=== PATIENT | female | born 1975 | race Caucasian/White ===

== ENCOUNTER 2020-04-06 15:30 | Outpatient (REF) | payer BC, SELFPAY | END 2020-04-06 15:31 | disposition home or self-care (01) | LOC: HO.LAB 15:30 | PROVIDERS: Visit Provider Internal Medicine | DX: Z20.822 Contact with and (suspected) exposure to COVID-19 (principal) | CPT/HCPCS: 36415; C9803; U0003 ==

== ENCOUNTER 2020-04-14 17:05 | Outpatient (REF) | payer BC, SELFPAY | END 2020-04-14 17:06 | disposition home or self-care (01) | LOC: HO.LAB 17:05 | PROVIDERS: PCP Pediatrics; Visit Provider Internal Medicine | DX: Z20.822 Contact with and (suspected) exposure to COVID-19 (principal) | CPT/HCPCS: 36415; C9803; U0003 ==

== ENCOUNTER → 2020-08-19 12:10 | Outpatient (BNVA) | payer BC, SELFPAY | PROVIDERS: PCP Pediatrics; Visit Provider Urology ==

== ENCOUNTER 2020-08-30 13:52 | Outpatient (REF) | payer BC, SELFPAY ==
[2020-08-31 09:39] LABS: CT PCR NOT DETECTED (Not Detect.); NG PCR NOT DETECTED (Not Detect.)
[2020-08-31 10:05] LABS: BV Int Neg Control Negative (Negative); BV Int Pos Control Positive (Positive)
== END 2020-08-30 13:53 | disposition home or self-care (01) ==
LOC: HO.LAB 13:52
PROVIDERS: Visit Provider Advanced Practice Midwife
DX: Z01.411 Encounter for gynecological examination (general) (routine) with abnormal findings (principal); Z11.3 Encounter for screening for infections with a predominantly sexual mode of transmission; B37.2 Candidiasis of skin and nail; Z20.2 Contact with and (suspected) exposure to infections with a predominantly sexual mode of transmission
CPT/HCPCS: 87480; 87491; 87510; 87591; 87660

== ENCOUNTER → 2020-11-02 13:22 | Outpatient (BNVA) | payer BC, SELFPAY | PROVIDERS: Visit Provider Advanced Practice Midwife | DX: Z30.433 Encounter for removal and reinsertion of intrauterine contraceptive device (principal) | CPT/HCPCS: 58300; 58301; 81025; J7298 ==

== ENCOUNTER 2021-01-01 10:28 | Emergency (ER) | payer BC, SELFPAY ==
--- NOTE | ~2021-01-01 | CT_ITS ---
EXAMINATION: CT ABDOMEN AND PELVIS WITHOUT CONTRAST CLINICAL INFORMATION: Right flank pain COMPARISON: None TECHNIQUE: Multidetector volumetric imaging was performed from the superior aspect of the liver through the pubic symphysis. Sagittal and coronal reformatted images were obtained on the technologist's workstation. This CT examination was performed using dose optimization techniques as appropriate, variously including the following: *Automated exposure control *Adjustment of mA and/or kV according to patient size (this includes techniques or standardized protocols for targeted exams where dose is matched to indication/reason for exam; i.e. extremities or head) *Use of iterative reconstruction technique DLP: 537 mGy-cm FINDINGS: LUNG BASES: The visualized lung bases are unremarkable. LIVER, GALLBLADDER, AND BILIARY TREE: The liver is normal in size, shape, and diffusely low in attenuation. No focal hepatic lesion or biliary ductal dilatation is present. The gallbladder is unremarkable with no evidence of radiopaque gallstones, gallbladder wall thickening, or obvious pericholecystic inflammatory changes. PANCREAS: Unremarkable. SPLEEN: Unremarkable. ADRENAL GLANDS: Unremarkable. KIDNEYS AND URETERS: The kidneys are normal in size, shape, and attenuation. No hydronephrosis, hydroureter, or calculi seen. No perinephric stranding. BLADDER: Unremarkable. GASTROINTESTINAL TRACT: The small and large bowel are unremarkable. The appendix is unremarkable. ABDOMINAL WALL: No significant hernia is appreciated. LYMPH NODES: Multiple small right lower quadrant mesenteric lymph nodes. VASCULAR: Unremarkable. PELVIC VISCERA: The uterus and adnexa are unremarkable. IUD within the endometrial canal. OSSEOUS STRUCTURES: Unremarkable. CT/CT abdomen pelvis wo con IMPRESSION: 1. Stable small right lower quadrant mesenteric lymph nodes may be secondary to mesenteric adenitis. 2. No renal calculi or hydronephrosis. 3. Normal appendix.
[2021-01-01 10:39] VITALS: BP 152/87; PULSE 87; RESP 18; TEMP 36.6; O2SAT 97; BMI 32.2
--- NOTE | 2021-01-01 10:48 | ED_ITS ---
HPI - Abdominal Pain General Chief Complaint: Abdominal Pain Stated Complaint: kidney pain Time Seen by Provider: 01/01/21 10:47 Source: patient Mode of arrival: ambulatory Limitations: no limitations History of Present Illness MD elicited complaint: flank pain Pertinent past history: kidney stones Onset (ago): month(s) (chronic in nature but much worse this AM) Pain Consistency: colicky Location: R flank Severity: moderate Quality: stabbing Radiation: RLQ Migration to: no migration Exacerbating factors: nothing Relieving factors: nothing Context: history of similar episodes Associated symptoms: nausea and dysuria Related Data Home Medications Medication Instructions Recorded Confirmed amitriptyline 50 mg tablet 50 mg PO BEDTIME 08/30/20 11/02/20 loratadine 10 mg tablet (Claritin) 10 mg PO DAILY 08/30/20 11/02/20 methocarbamol 750 mg tablet 750 mg PO TID 08/30/20 11/02/20 nabumetone 500 mg tablet 500 mg PO BID 08/30/20 11/02/20 oxcarbazepine 300 mg tablet 300 mg PO BID 08/30/20 11/02/20 pentosan polysulfate sodium 100 mg 100 mg PO TID 08/30/20 11/02/20 capsule zolpidem 10 mg tablet 10 mg PO BEDTIME PRN 08/30/20 11/02/20 levonorgestrel 20 mcg/24 hours (7 INTRAUTERINE 11/02/20 11/02/20 yrs) 52 mg intrauterine device (Mirena) Previous Rx's Medication Instructions Recorded miconazole nitrate 2 % topical 1 appl TOPICAL BID #85 g 08/30/20 powder metronidazole 500 mg tablet 500 mg PO BID 7 Days #14 tab 08/31/20 (Flagyl) pentosan polysulfate sodium 100 mg 200 mg PO BID 30 Days #120 cap 10/04/20 capsule (Elmiron) hydrocodone 5 mg-acetaminophen 325 1 tab PO Q6H PRN #8 tab 01/01/21 mg tablet ondansetron 4 mg disintegrating 4 mg PO Q8H PRN #20 tab 01/01/21 tablet Allergies Allergy/AdvReac Type Severity Reaction Status Date / Time levofloxacin [From LEVAQUIN] Allergy Intermediate redness Verified 11/02/20 13:49 and itchiness latex [LATEX] Allergy Unknown RASH Verified 11/02/20 13:49 Review of Systems Review of Systems Constitutional : No Fever, No Chills ENT/Mouth : No sore throat Eyes: No Eye Pain, No Swelling, No Redness Cardiovascular : No Chest Pain, No SOB Respiratory : No Cough, No Sputum, No Wheezing Gastrointestinal : positive Nausea, no Vomiting, No Diarrhea, positive abdominal pain Genitourinary : positive Dysuria, positive urinary frequency, no Hematuria, positive Flank Pain, no hesitancy Musculoskeletal : No joint pain, No Myalgias Skin : No Skin Lesions, No rash Neuro : No Weakness, No Numbness, No Headache Psych : No Anxiety/Panic, No Depression Heme/Lymph: No Bruising, No Lymphadenopathy Endocrine : No Polyuria, No Polydipsia All other systems reviewed and are negative Physical Exam Vital Signs: Vital Signs: Last Vital Signs Temp 97.9 F 01/01/21 11:54 Pulse 84 01/01/21 11:54 Resp 17 01/01/21 11:54 BP 127/75 01/01/21 11:54 Pulse Ox 97 01/01/21 11:54 Body Mass Index 32.2 Appearance: Alert. Oriented X3. No acute distress. Eyes: Pupils equal, round and reactive to light. ENT: Pharynx normal. Neck: Normal inspection. Neck supple. CVS: Normal heart rate and rhythm. Pulses normal. Respiratory: No respiratory distress. Breath sounds normal. Abdomen: Soft and mild R sided abdominal ttp Back: R flank ttp Skin: Skin warm and dry. Normal skin color. Normal skin turgor. Extremities: No lower extremity edema. No calf ttp Neuro: Oriented X 3. No motor deficit. No sensory deficit. Course Course Course Narrative: neg UA dx with mesenteric adenitis stable for DC MDM - Abdominal Pain MDM Narrative Medical decision making narrative: 45 yo female with hx of fibromyalgia, interstitial cystitis, renal colic comes in with worsening R flank pain since this AM and feels like a prior stone at this time labs, UA, CT scan for renal colic, IV medictions for pain - dispo per results and findings. Lab Data Result diagrams: 01/01/21 11:04 01/01/21 11:04 Labs: Lab Results 01/01/21 01/01/21 01/01/21 Range/Units 11:03 11:03 11:04 WBC 6.4 (4.8-10.8) X10*3/uL RBC 4.41 (4.20-5.50) X10*6/uL Hgb 13.5 (12.0-16.0) g/dl Hct 39.7 (37-47) % MCV 90.0 (80-98) fL MCH 30.6 (27.0-33.0) pg MCHC 34.0 (31.0-35.0) g/dl RDW 13.0 (11.0-16.0) % Plt Count 166 (160-400) X10*3/uL MPV 10.0 (9.4-12.3) fL Immature Gran % (Auto) 0.3 (0.0-0.4) % Neut % (Auto) 63.5 (45-73) % Lymph % (Auto) 26.8 (20-40) % Divide % (Auto) 7.2 (2-11) % Eos % (Auto) 1.9 (0-4) % Baso % (Auto) 0.3 (0-2) % Lymph # (Auto) 1.7 (1.2-4.9) X10*3/uL Divide # (Auto) 0.5 (0.1-1.2) X10*3/uL Eos # (Auto) 0.1 (0.0-0.4) X10*3/uL Baso # (Auto) 0.0 (0.0-0.2) X10*3/uL Abs Immat Gran (auto) 0.02 (0.00-0.03) X10*3/uL Absolute Neuts (auto) 4.1 (2.0-8.3) X10*3/uL Absolute Nucleated RBC 0.000 (0.0-0.012) X10*3/uL Nucleated RBC % (auto) 0.0 (0.0-0.2) /100WBC Sodium (135-145) mmol/L Potassium (3.3-5.1) mmol/L Chloride (96-108) mmol/L Carbon Dioxide (22-29) mmol/L Anion Gap (12-20) BUN (9-16) mg/dL Creatinine (0.5-1.4) mg/dL Estim Creat Clear Calc Estimated GFR Random Glucose (60-115) mg/dL Calcium (8.4-10.2) mg/dL Magnesium (1.6-2.6) mg/dL Total Bilirubin (0.0-1.0) mg/dL Direct Bilirubin (0.0-0.5) mg/dL AST (5-31) U/L ALT (0-31) U/L Alkaline Phosphatase (39-117) U/L Total Protein (6.5-8.0) g/dL Albumin (3.5-5.0) g/dL Lipase (8-78) U/L Urine Color YELLOW Urine Appearance CLOUDY Urine pH 6.0 (5.0-8.0) Ur Specific [place] 1.020 (1.005-1.025) Urine Protein NEG (NEG-TRACE) MG/DL Urine Glucose (UA) NEG (NEG) MG/DL Urine Ketones NEG (NEG) MG/DL Urine Blood NEG (NEG) Urine Nitrite NEG (NEG) Ur Leukocyte Esterase NEG (NEG) Urine Test (NEGATIVE) COVID-19 ([facility]) Negative (Negative) COVID-19 Clin Com See Note 01/01/21 01/01/21 Range/Units 11:04 11:04 WBC (4.8-10.8) X10*3/uL RBC (4.20-5.50) X10*6/uL Hgb (12.0-16.0) g/dl Hct (37-47) % MCV (80-98) fL MCH (27.0-33.0) pg MCHC (31.0-35.0) g/dl RDW (11.0-16.0) % Plt Count (160-400) X10*3/uL MPV (9.4-12.3) fL Immature Gran % (Auto) (0.0-0.4) % Neut % (Auto) (45-73) % Lymph % (Auto) (20-40) % Divide % (Auto) (2-11) % Eos % (Auto) (0-4) % Baso % (Auto) (0-2) % Lymph # (Auto) (1.2-4.9) X10*3/uL Divide # (Auto) (0.1-1.2) X10*3/uL Eos # (Auto) (0.0-0.4) X10*3/uL Baso # (Auto) (0.0-0.2) X10*3/uL Abs Immat Gran (auto) (0.00-0.03) X10*3/uL Absolute Neuts (auto) (2.0-8.3) X10*3/uL Absolute Nucleated RBC (0.0-0.012) X10*3/uL Nucleated RBC % (auto) (0.0-0.2) /100WBC Sodium 140 (135-145) mmol/L Potassium 4.1 (3.3-5.1) mmol/L Chloride 104 (96-108) mmol/L Carbon Dioxide 27 (22-29) mmol/L Anion Gap 13 (12-20) BUN 11 (9-16) mg/dL Creatinine 0.73 (0.5-1.4) mg/dL Estim Creat Clear Calc 86.0 Estimated GFR > 60 Random Glucose 99 (60-115) mg/dL Calcium 9.2 (8.4-10.2) mg/dL Magnesium 2.1 (1.6-2.6) mg/dL Total Bilirubin 0.3 (0.0-1.0) mg/dL Direct Bilirubin < 0.2 (0.0-0.5) mg/dL AST 18 (5-31) U/L ALT 31 (0-31) U/L Alkaline Phosphatase 60 (39-117) U/L Total Protein 6.9 (6.5-8.0) g/dL Albumin 4.2 (3.5-5.0) g/dL Lipase 22 (8-78) U/L Urine Color Urine Appearance Urine pH (5.0-8.0) Ur Specific [place] (1.005-1.025) Urine Protein (NEG-TRACE) MG/DL Urine Glucose (UA) (NEG) MG/DL Urine Ketones (NEG) MG/DL Urine Blood (NEG) Urine Nitrite (NEG) Ur Leukocyte Esterase (NEG) Urine Test NEGATIVE (NEGATIVE) COVID-19 ([facility]) (Negative) COVID-19 Clin Com Discharge Plan Discharge Clinical Impression: Acute mesenteric adenitis Patient Disposition: Home, Self-Care Instructions: Mesenteric Adenitis (ED) Additional Instructions: return to ED for any worsening symptoms or concerns Prescriptions: New ondansetron 4 mg tablet,disintegrating 4 mg PO Q8H PRN (Reason: nausea and vomiting) Qty: 20 RF: 0 hydrocodone-acetaminophen 5-325 mg tablet 1 tab PO Q6H PRN (Reason: pain) Qty: 8 RF: 0 No Action metronidazole [Flagyl] 500 mg tablet 500 mg PO BID 7 Days Qty: 14 RF: 0 Elmiron 100 mg capsule 200 mg PO BID 30 Days Qty: 120 RF: 4 loratadine [Claritin] 10 mg tablet 10 mg PO DAILY RF: 0 amitriptyline 50 mg tablet 50 mg PO BEDTIME RF: 0 nabumetone 500 mg tablet 500 mg PO BID RF: 0 oxcarbazepine 300 mg tablet 300 mg PO BID RF: 0 zolpidem 10 mg tablet 10 mg PO BEDTIME PRNRF: 0 pentosan polysulfate sodium 100 mg capsule 100 mg PO TID RF: 0 methocarbamol 750 mg tablet 750 mg PO TID RF: 0 miconazole nitrate 2 % powder 1 appl topical BID Qty: 85 RF: 1 Mirena 20 mcg/24 hours (6 yrs) 52 mg intrauterine device intrauterine RF: 0 Referrals: Veronica Jimenez MD [Primary Care Provider] - 3 days (if not better) Stand Alone Forms: Work/School Release [facility] Past Medical History Attestation statement: The following information was validated with the patient. Medical History (Updated 01/01/21 @ 12:36 by Imani Rowe DO) Anxiety Bipolar 2 disorder Depression Interstitial cystitis Surgical History (Updated 01/01/21 @ 11:10 by Imani Rowe DO) History of tubal ligation S/P ureteral stent placement Social History Social History Alcohol intake: current Alcohol intake frequency: holidays/special occasions only Patient Tobacco Use Status: Never used Tobacco Use of substances other than those prescribed or required for medical reasons: No Advance Directives: No Advance Directives Information Provided: Yes Patient : No Gender identity: Female
[2021-01-01 11:23] LABS: MANUAL DIFF FLAG NO
[2021-01-01 11:23] LABS: Appearance Urine CLOUDY; Color Urine YELLOW; Glucose Urine UA NEG (NEG); Leukocyte Esterase Urine NEG (NEG); Nitrite Urine NEG (NEG); Urine Blood NEG (NEG); Urine Ketones NEG (NEG); Urine Protein NEG (NEG-TRACE)
[2021-01-01 11:24] LABS: Basophils Percent Auto 0.3 % (0-2); Eosinophils Absolute Auto 0.1 X10*3/uL (0.0-0.4); Eosinophils Percent Auto 1.9 % (0-4); Hematocrit 39.7 % (37-47); Hemoglobin 13.5 g/dl (12.0-16.0); Imm Gran Abs Auto 0.02 X10*3/uL (0.00-0.03); Imm Gran Pct Auto 0.3 % (0.0-0.4); Lymphocytes Absolute Auto 1.7 X10*3/uL (1.2-4.9); Lymphocytes Percent Auto 26.8 % (20-40); Mean Corpuscular Hemoglobin 30.6 pg (27.0-33.0); Monocytes Absolute Auto 0.5 X10*3/uL (0.1-1.2); Monocytes Percent Auto 7.2 % (2-11); Neutrophils Absolute Auto 4.1 X10*3/uL (2.0-8.3); Neutrophils Percent Auto 63.5 % (45-73); Platelet Count 166 X10*3/uL (160-400); Red Blood Count 4.41 X10*6/uL (4.20-5.50); White Blood Count 6.4 X10*3/uL (4.8-10.8)
[2021-01-01 11:25] LABS: UPreg QC Valid YES; Urine Pregnancy NEGATIVE (NEGATIVE)
[2021-01-01] MEDS: ondansetron HCL 4 MG/2 ML VIAL IVPUSH (11:27)
[2021-01-01] MEDS: Ketorolac Tromethamine 15 MG/ML VIAL 30 MG IVPUSH (11:27)
[2021-01-01] MEDS: Morphine Sulfate 4 MG/ML CARTRIDGE IVPUSH (11:28)
[2021-01-01] MEDS: 0.9 % Sodium Chloride 1,000 ML 999 ML IVCONT (11:37)
[2021-01-01 11:39] VITALS: BP 137/71; PULSE 83; RESP 16; O2SAT 94
[2021-01-01 11:40] LABS: COVID-19 Test Negative (Negative); IDNOW Serial# 55D5AD1C
[2021-01-01 11:41] LABS: Alanine Aminotransferase 31 U/L (0-31); Albumin Level 4.2 g/dL (3.5-5.0); Alkaline Phosphatase 60 U/L (39-117); Anion Gap 13 (12-20); Aspartate Amino Transferase 18 U/L (5-31); Bilirubin Direct < 0.2 mg/dL (0.0-0.5); Bilirubin Total 0.3 mg/dL (0.0-1.0); Blood Urea Nitrogen 11 mg/dL (9-16); Calcium 9.2 mg/dL (8.4-10.2); Carbon Dioxide 27 mmol/L (22-29); Chloride 104 mmol/L (96-108); Estimated Glomerular Filt Rate > 60; Glucose Random 99 mg/dL (60-115); Lipase 22 U/L (8-78); Magnesium 2.1 mg/dL (1.6-2.6); Potassium 4.1 mmol/L (3.3-5.1); Sodium 140 mmol/L (135-145); Total Protein 6.9 g/dL (6.5-8.0)
[2021-01-01 11:54] VITALS: BP 127/75; PULSE 84; RESP 17; TEMP 36.6; O2SAT 97
[2021-01-01 13:13] LABS: IDNOW Serial# 9DD0AD1C
[2021-01-01 13:14] LABS: Strep A Nucleic Acid Negative (Negative)
== END 2021-01-01 13:36 | disposition home or self-care (01) ==
PROVIDERS: Emergency Provider Emergency Medicine; PCP Pediatrics
DX: I88.0 Nonspecific mesenteric lymphadenitis (principal); Z20.822 Contact with and (suspected) exposure to COVID-19
CPT/HCPCS: 36415; 74176; 80048; 80076; 81003; 81025; 83690; 83735; 85025; 87635; 87651; 96361; 96374; 96375; 99284; J1885; J2270; J2405

== ENCOUNTER → 2021-01-09 13:20 | Outpatient (BNVA) | payer BC, SELFPAY | PROVIDERS: Visit Provider Advanced Practice Midwife ==

== ENCOUNTER → 2021-02-21 10:23 | Outpatient (BNVA) | payer BC, SELFPAY | PROVIDERS: PCP Pediatrics ==

== ENCOUNTER 2021-07-05 10:47 | Emergency (ER) | payer BC, SELFPAY ==
--- NOTE | ~2021-07-05 | XR_ITS ---
EXAMINATION: XR CHEST CLINICAL INFORMATION: Syncope, weakness. COMPARISON: None TECHNIQUE: Frontal view of the chest was obtained. FINDINGS: No significant abnormality is noted involving the heart, lungs, mediastinum, bony thorax or soft tissues. XR/XR chest 1V IMPRESSION: No acute cardiopulmonary process.
--- NOTE | 2021-07-05 11:05 | ECG_ITS ---
Test Reason : SYNCOPE Blood Pressure : / mmHG Vent. Rate : 081 BPM Atrial Rate : 081 BPM P-R Int : 152 ms QRS Dur : 104 ms QT Int : 408 ms P-R-T Axes : 038 012 014 degrees QTc Int : 473 ms Normal sinus rhythm Cannot rule out Inferior infarct , age undetermined Cannot rule out Anterior infarct , age undetermined Abnormal ECG No previous ECGs available Referred By: Generic ED Physician Electronically Signed By:AMALIA CAMARILLO MD
[2021-07-05 11:06] VITALS: BP 87/50; PULSE 92; RESP 17; TEMP 36.4; O2SAT 98; BMI 32.1
[2021-07-05 11:27] VITALS: BP 105/66; PULSE 85; RESP 17; TEMP 36.4; O2SAT 99
[2021-07-05 11:42] LABS: MANUAL DIFF FLAG NO
[2021-07-05 11:47] LABS: Basophils Percent Auto 0.2 % (0-2); Eosinophils Percent Auto 0.2 % (0-4); Hemoglobin 14.9 g/dl (12.0-16.0); Imm Gran Abs Auto 0.12 X10*3/uL (0.00-0.03); Imm Gran Pct Auto 0.7 % (0.0-0.4); Lymphocytes Absolute Auto 1.4 X10*3/uL (1.2-4.9); Lymphocytes Percent Auto 7.9 % (20-40); Mean Corpuscular HGB Conc 33.9 g/dl (31.0-35.0); Mean Corpuscular Hemoglobin 30.5 pg (27.0-33.0); Mean Platelet Volume 10.6 fL (9.4-12.3); Monocytes Absolute Auto 1.2 X10*3/uL (0.1-1.2); Monocytes Percent Auto 6.5 % (2-11); Neutrophils Percent Auto 84.5 % (45-73); Platelet Count 211 X10*3/uL (160-400); Red Blood Count 4.89 X10*6/uL (4.20-5.50); Red Cell Distribution Width 13.3 % (11.0-16.0); White Blood Count 17.8 X10*3/uL (4.8-10.8)
[2021-07-05 11:59] LABS: Anion Gap 16 (12-20); Blood Urea Nitrogen 19 mg/dL (9-16); Calcium 9.6 mg/dL (8.4-10.2); Carbon Dioxide 22 mmol/L (22-29); Chloride 104 mmol/L (96-108); Creatinine Clr Calc Pharmacy 78.5; Estimated Glomerular Filt Rate > 60; Glucose Random 108 mg/dL (60-115); Potassium 3.8 mmol/L (3.3-5.1); Sodium 138 mmol/L (135-145)
[2021-07-05 12:03] LABS: Troponin-I High Sensitivity < 3.5 ng/L (<3.5-17.0)
--- NOTE | 2021-07-05 12:53 | ED_ITS ---
HPI - General Adult General Chief complaint: Syncope Stated complaint: vomiting Time Seen by Provider: 07/05/21 11:16 Source: patient Limitations: no limitations History of Present Illness HPI narrative: This is a 46-year-old female with history of Crohn's disease and irritable bowel syndrome, fibromyalgia, among medical problems, who this morning developed vomiting times several episodes and then had syncope, with 2 episodes back to the [facility] with associated incontinence of stool/diarrhea. Patient has had some abdominal cramping but notes that this is fairly chronic for her. She denies any fever. She denies any chest pain or shortness of breath or palpitations. She denies any urinary symptoms. She denies any history of any cardiac disease. Related Data Home Medications Medication Instructions Recorded Confirmed amitriptyline 50 mg tablet 50 mg PO BEDTIME 08/30/20 02/21/21 loratadine 10 mg tablet (Claritin) 10 mg PO DAILY 08/30/20 02/21/21 methocarbamol 750 mg tablet 750 mg PO TID 08/30/20 02/21/21 nabumetone 500 mg tablet 500 mg PO BID 08/30/20 02/21/21 oxcarbazepine 300 mg tablet 300 mg PO BID 08/30/20 02/21/21 zolpidem 10 mg tablet 10 mg PO BEDTIME PRN 08/30/20 02/21/21 levonorgestrel 20 mcg/24 hours (7 INTRAUTERINE 11/02/20 02/21/21 yrs) 52 mg intrauterine device (Mirena) hyoscyamine sulfate 0.125 mg mg SUBLINGUAL 02/21/21 02/21/21 sublingual tablet Previous Rx's Medication Instructions Recorded miconazole nitrate 2 % topical 1 appl TOPICAL BID #85 g 08/30/20 powder hydrocodone 5 mg-acetaminophen 325 1 tab PO Q6H PRN #8 tab 01/01/21 mg tablet ondansetron 4 mg disintegrating 4 mg PO Q8H PRN #20 tab 01/01/21 tablet pentosan polysulfate sodium 100 mg 200 mg PO BID 30 Days #120 cap 02/21/21 capsule (Elmiron) ondansetron 4 mg disintegrating 4 mg PO Q6H PRN #20 tab 07/05/21 tablet Allergies Allergy/AdvReac Type Severity Reaction Status Date / Time levofloxacin [From LEVAQUIN] Allergy Intermediate redness Verified 02/21/21 10:46 and itchiness latex [LATEX] Allergy Unknown RASH Verified 02/21/21 10:46 Review of Systems Review of Systems: Yes all other systems are reviewed and are negative Constitutional: Constitutional: Reports as per HPI and Denies fever(s) Eyes: Eyes: Reports as per HPI and Reports no additional eye complaints ENT: Reports system reviewed and no additional complaints, except as documented, Reports as per HPI, Denies nasal congestion, Denies nasal discharge and Denies sore throat Cardiovascular: Cardiovascular: Reports as per HPI, Denies chest pain and Denies dyspnea Respiratory: Respiratory: Reports as per HPI, Denies cough and Denies dyspnea Gastrointestinal: Gastrointestinal: Reports as per HPI, Denies abdominal pain, Denies diarrhea and Denies vomiting Genitourinary: Genitourinary: Reports as per HPI, Denies hematuria, Denies urinary frequency and Denies dysuria Musculoskeletal: Musculoskeletal: Reports no additional musculoskeletal complaints and Denies numbness Integumentary/Breasts: Skin/Breast: Reports as per HPI and Denies rash Neurologic: Reports as per HPI, Denies focal weakness and Denies numbness Psychiatric: Psychiatric: Reports no additional psychiatric complaints and Reports as per HPI Endocrine: Endocrine: Reports no additional endocrine complaints and Reports as per HPI Hematologic/Lymphatic: Hematologic/Lymphatic: Reports no additional hematologic/lymphatic complaints, Reports as per HPI and Reports other (No peripheral edema) [facility] Past Medical History Medical History (Updated 07/05/21 @ 14:08 by Thai Sun MD) Anxiety Bipolar 2 disorder Crohn disease Depression Diverticulitis Interstitial cystitis Surgical History History of tubal ligation S/P ureteral stent placement Social History Social History Alcohol intake: never Patient Tobacco Use Status: Never used Tobacco Use of substances other than those prescribed or required for medical reasons: No Advance Directives: No Advance Directives Information Provided: No Gender identity: Female Physical Exam ED Vital Signs: Vital Signs - 24 hr 07/05/21 11:06 07/05/21 11:27 07/05/21 13:43 Temperature 97.6 F 97.6 F Pulse Rate 92 85 88 Respiratory Rate 17 17 16 Blood Pressure 87/50 L 105/66 106/63 Pulse Oximetry 98 99 98 BMI result Body Mass Index 32.1 Const General: no acute distress Orientation/consciousness: patient oriented x3 HENMT Head: Yes normal to inspection General nose exam: Normal external nose present Mouth: moist mucous membranes Throat: Yes posterior oropharynx normal, Yes tonsils normal and Yes uvula midline Eyes Eyelids: Yes eyelids normal Conjunctivae: conjunctivae normal Pupils: Equal, round and reactive pupils present Neck Neck: Yes supple Resp Effort & Inspection: normal respiratory effort Auscultation: clear to auscultation bilaterally Cardio Rate: regular rate Rhythm: regular rhythm Heart sounds: S1 normal heart sound present, S2 normal heart sound present, no gallops, no murmurs and no rubs GI Inspection: No distended Palpation (GI): Soft to palpation and Tenderness to palpation present (GI) (Mildly tender diffusely, patient states is baseline) Auscultation: normal bowel sounds Skin General skin exam: other (Warm and dry) Neuro General: patient oriented x3 and CN's II-XI intact bilaterally Cranial nerves: Yes Equal, round and reactive pupils present Extrem General: Yes no pedal edema Psych Affect: normal affect Attitude: cooperative Medical Decision Making [facility] Narrative Medical decision making narrative: 46-year-old female with a history of Crohn's disease, IBS, with chronic GI symptoms, common episodes of vomiting, had repetitive vomiting this morning associated with syncope and 1 episode of diarrhea. Patient feels better now after IV hydration and Zofran, has tolerated p.o. fluids and applesauce. Patient likely had a vasovagal episode. Patient has no cardiac history and EKG is unremarkable. Patient's white blood cell count is elevated but this is probably due to a stress reaction/demargination. Patient feels well clinically and is safe for outpatient follow-up. Will prescribe antiemetic Differential Diagnosis Differential Diagnosis: Patient with a history Crohn's and IBS, had repetitive vomiting and syncope Lab Data Lab results reviewed: Yes I reviewed the patient's lab results. Result diagrams: 07/05/21 11:37 07/05/21 11:37 Labs: Lab Results 07/05/21 07/05/21 07/05/21 Range/Units 11:37 11:37 11:37 WBC 17.8 H (4.8-10.8) X10*3/uL RBC 4.89 (4.20-5.50) X10*6/uL Hgb 14.9 (12.0-16.0) g/dl Hct 44.0 (37.0-47.0) % MCV 90.0 (80.0-98.0) fL MCH 30.5 (27.0-33.0) pg MCHC 33.9 (31.0-35.0) g/dl RDW 13.3 (11.0-16.0) % Plt Count 211 (160-400) X10*3/uL MPV 10.6 (9.4-12.3) fL Immature Gran % (Auto) 0.7 H (0.0-0.4) % Neut % (Auto) 84.5 H (45-73) % Lymph % (Auto) 7.9 L (20-40) % [place] % (Auto) 6.5 (2-11) % Eos % (Auto) 0.2 (0-4) % Baso % (Auto) 0.2 (0-2) % Lymph # (Auto) 1.4 (1.2-4.9) X10*3/uL [place] # (Auto) 1.2 (0.1-1.2) X10*3/uL Eos # (Auto) 0.0 (0.0-0.4) X10*3/uL Baso # (Auto) 0.0 (0.0-0.2) X10*3/uL Abs Immat Gran (auto) 0.12 H (0.00-0.03) X10*3/uL Absolute Neuts (auto) 15.0 H (2.0-8.3) x10*3/uL Absolute Nucleated RBC 0.000 (0.0-0.012) X10*3/uL Nucleated RBC % (auto) 0.0 (0.0-0.2) /100WBC Sodium 138 (135-145) mmol/L Potassium 3.8 (3.3-5.1) mmol/L Chloride 104 (96-108) mmol/L Carbon Dioxide 22 (22-29) mmol/L Anion Gap 16 (12-20) BUN 19 H (9-16) mg/dL Creatinine 0.79 (0.5-1.4) mg/dL Estim Creat Clear Calc 78.5 Estimated GFR > 60 Random Glucose 108 (60-115) mg/dL Calcium 9.6 (8.4-10.2) mg/dL Troponin I High Sens < 3.5 (<3.5-17.0) ng/L Imaging Data Chest x-ray: Radiologist's impression: IMPRESSION: Unremarkable examination. ? ECG Data Attestation: I personally reviewed and interpreted this ECG as follows: Interpretation: Sinus rhythm with a rate of 81. RSR pattern in lead V1 and V2. T-wave inversion V1 through V for. No ST elevation or depression. Q-wave in lead 3 but not in leads 2 and F Discharge Plan Discharge Clinical Impression: Vasovagal syncope, Vomiting Patient Disposition: Home, Self-Care Instructions: Syncope (ED), Acute Nausea and Vomiting (ED) Prescriptions: New ondansetron 4 mg tablet,disintegrating 4 mg PO Q6H PRN (Reason: nausea and vomiting) Qty: 20 0RF No Action ondansetron 4 mg tablet,disintegrating 4 mg PO Q8H PRN (Reason: nausea and vomiting) Qty: 20 0RF hydrocodone-acetaminophen 5-325 mg tablet 1 tab PO Q6H PRN (Reason: pain) Qty: 8 0RF loratadine [Claritin] 10 mg tablet 10 mg PO DAILY 0RF amitriptyline 50 mg tablet 50 mg PO BEDTIME 0RF nabumetone 500 mg tablet 500 mg PO BID 0RF oxcarbazepine 300 mg tablet 300 mg PO BID 0RF zolpidem 10 mg tablet 10 mg PO BEDTIME PRN0RF methocarbamol 750 mg tablet 750 mg PO TID 0RF miconazole nitrate 2 % powder 1 appl topical BID Qty: 85 1RF hyoscyamine sulfate 0.125 mg tablet, sublingual sublingual 0RF Elmiron 100 mg capsule 200 mg PO BID 30 Days Qty: 120 4RF Mirena 20 mcg/24 hours (6 yrs) 52 mg intrauterine device intrauterine 0RF
[2021-07-05 13:43] VITALS: BP 106/63; PULSE 88; RESP 16; O2SAT 98
[2021-07-05] MEDS: 0.9 % Sodium Chloride 1,000 ML 999 ML IV (13:47)
[2021-07-05] MEDS: ondansetron HCL 4 MG/2 ML VIAL IVPUSH (13:50)
[2021-07-05 16:06] VITALS: BP 101/61; PULSE 85; RESP 15; O2SAT 96
== END 2021-07-05 16:41 | disposition home or self-care (01) ==
PROVIDERS: Emergency Provider Emergency Medicine; PCP Pediatrics
DX: R55 Syncope and collapse (principal); R11.10 Vomiting, unspecified; K50.90 Crohn's disease, unspecified, without complications; K58.9 Irritable bowel syndrome, unspecified
CPT/HCPCS: 36415; 71045; 80048; 84484; 85025; 93005; 96361; 96374; 99284; J2405

== ENCOUNTER → 2021-08-21 08:23 | Outpatient (BNVA) | payer BC, SELFPAY | PROVIDERS: PCP Pediatrics | DX: N30.10 Interstitial cystitis (chronic) without hematuria (principal) ==

== ENCOUNTER 2021-09-06 12:08 | Outpatient (REF) | payer BC, SELFPAY ==
--- NOTE | ~2021-09-06 | XR_ITS ---
EXAMINATION: RIGHT HAND AND WRIST X-RAY CLINICAL INFORMATION: Other enthesopathies, not elsewhere classified COMPARISON: None TECHNIQUE: 3 views of the right hand and wrist FINDINGS: Bone alignment is normal. No fracture or dislocation is seen. Joint spaces are normal. Soft tissues are normal. XR/XR hand wrist RT IMPRESSION: Unremarkable exam.
== END 2021-09-06 12:09 | disposition home or self-care (01) ==
LOC: HO.HMGCX 12:08
PROVIDERS: PCP Pediatrics; Visit Provider Internal Medicine
DX: M77.8 Other enthesopathies, not elsewhere classified (principal)
CPT/HCPCS: 73110; 73130

== ENCOUNTER → 2022-08-21 08:34 | Outpatient (BNVA) | payer BC, SELFPAY | PROVIDERS: PCP Pediatrics; Visit Provider Nurse Practitioner Family ==

== ENCOUNTER 2022-10-09 05:51 | Day surgery (SDC) | payer BC, SELFPAY ==
--- NOTE | 2022-10-08 09:19 | HO.ANESPROP2 ---
Documented by User: Kadie York NP 10/08/22 09:20 HPI - Anesthesia Eval Consult details Narrative: 47yo F for Cystoscopy Hydrodistention of Bladder PMFSH Active Problems Active Problems: All Active Problems (Updated 12/19/21 @ 09:42 by Farhat Lowry MD) Raynaud phenomenon (Acute) Tendinitis of right wrist (Acute) Fatigue (Acute) Interstitial cystitis (Acute) Fibromyalgia (Acute) Well woman exam with routine gynecological exam (Acute) Encounter for routine checking of intrauterine contraceptive device (IUD) (Acute) Cervical cancer screening (Acute) Yeast infection of the skin (Acute) Encounter for removal and reinsertion of intrauterine contraceptive device (IUD) (Acute) IUD (intrauterine device) in place (Acute) Past Medical History Medical History Anxiety Bipolar 2 disorder Crohn disease Depression Diverticulitis Interstitial cystitis Surgical History Surgical History History of tubal ligation S/P ureteral stent placement Social History Social History Household Members: Spouse and Family Housing: House Alcohol intake: never Patient Tobacco Use Status: Never used Tobacco e-Cigarette/Vaping Use: Never Used Second Hand Smoke Exposure: No Use of substances other than those prescribed or required for medical reasons: Yes Are you DNR?: No Advance Directives: No Advance Directives Information Provided: Yes Advance Directives on File: No service: No 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 Gender identity: Female Vision needs: Yes (glasses) Meds Allergies Allergy/AdvReac Type Severity Reaction Status Date / Time levofloxacin [From LEVAQUIN] Allergy Intermediate redness Verified 08/21/22 09:10 and itchiness latex [LATEX] Allergy Unknown RASH Verified 08/21/22 09:10 Home Medications Medication Instructions Recorded Confirmed Last Taken Type amitriptyline 50 mg tablet 50 mg PO BEDTIME 08/30/20 10/09/22 10/08/22 History oxcarbazepine 300 mg tablet 300 mg PO BID 08/30/20 10/09/22 10/09/22 History zolpidem 10 mg tablet 10 mg PO BEDTIME PRN Insomnia 0610/09/22 10/08/22 History levonorgestrel 21 mcg/24 hours (8 1 device intrauterine ONCE 11/02/20 10/09/22 Unknown History yrs) 52 mg intrauterine device (Mirena) hyoscyamine sulfate 0.125 mg 0.125 mg sublingual DAILY PRN 12/19/21 10/09/22 10/08/22 History sublingual tablet Bladder Spasms cholecalciferol (vitamin D3) 250 250 mcg PO DAILY 08/21/22 10/09/22 10/08/22 History mcg (10,000 unit) capsule ondansetron HCl 4 mg tablet 4 mg PO Q8H PRN muscle spasm 08/21/22 10/09/22 10/08/22 History Exam Exam Date and Time: October 08, [id number] Assessment and Plan Assessment Anesthesia Assessment: Chart Reviewed Documented by User: Nicolette Campbell MD 10/09/22 09:11 [facility] Past Medical History Medical History Anxiety Bipolar 2 disorder Crohn disease Depression Diverticulitis Interstitial cystitis Family History Family history of problems with anesthesia: No Surgical History Surgical History History of tubal ligation S/P ureteral stent placement History of Problems with Anesthesia: No Social History Social History Household Members: Spouse and Family Housing: House Alcohol intake: never Patient Tobacco Use Status: Never used Tobacco e-Cigarette/Vaping Use: Never Used Second Hand Smoke Exposure: No Use of substances other than those prescribed or required for medical reasons: Yes Are you DNR?: No Advance Directives: No Advance Directives Information Provided: Yes Advance Directives on File: No service: No 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 [employer] Gender identity: Female Vision needs: Yes (glasses) Meds Allergies Allergy/AdvReac Type Severity Reaction Status Date / Time levofloxacin [From LEVAQUIN] Allergy Intermediate redness Verified 08/21/22 09:10 and itchiness latex [LATEX] Allergy Unknown RASH Verified 08/21/22 09:10 Home Medications Medication Instructions Recorded Confirmed Last Taken Type amitriptyline 50 mg tablet 50 mg PO BEDTIME 08/30/20 10/09/22 10/08/22 History oxcarbazepine 300 mg tablet 300 mg PO BID 08/30/20 10/09/22 10/09/22 History zolpidem 10 mg tablet 10 mg PO BEDTIME PRN Insomnia 08/30/20 10/09/22 10/08/22 History levonorgestrel 21 mcg/24 hours (8 1 device intrauterine ONCE 11/02/20 10/09/22 Unknown History yrs) 52 mg intrauterine device (Mirena) hyoscyamine sulfate 0.125 mg 0.125 mg sublingual DAILY PRN 12/19/21 10/09/22 10/08/22 History sublingual tablet Bladder Spasms cholecalciferol (vitamin D3) 250 250 mcg PO DAILY 08/21/22 10/09/22 10/08/22 History mcg (10,000 unit) capsule ondansetron HCl 4 mg tablet 4 mg PO Q8H PRN muscle spasm 08/21/22 10/09/22 10/08/22 History Exam Airway Mallampati Class: I Neck ROM: Full Loose/Missing/Broken Teeth: No Heart: rr Lungs: cta Assessment and Plan Assessment Anesthesia Assessment: Anesthesia Plan Discussed Final Anesthetic Review Family History of Problems with Anesthesia: No History of Problems with Anesthesia: No NPO: Yes ASA Class: II Final Preanesthetic Review: No Changes in Pt Med Stat, Meds/Allgs Chart Reviewed, Consent Obtained/Reviewed and Anes Risks/Benef Reviewed Patient Risk: Low Procedure Risk: Low Anesthetic Plan Anesthetic Plan: GA Disposition: Standard PACU
[2022-10-09 06:26] VITALS: BP 118/55; PULSE 81; RESP 16; TEMP 36.8; O2SAT 95; BMI 30.7
[2022-10-09] MEDS: Lactated Ringers 1,000 ML 100 ML IVCONT (06:41)
--- NOTE | 2022-10-09 07:39 | MHC.SHP ---
Pre-Procedural Eval Section A Date of Service: 10/09/22 The patient is an INPATIENT: No Changes since office visit: No Cold of Flu in the past 2 weeks, No New Medical Problems, No Changes in Medication and No Patient answered all questions Section B Chief Complaint: Interstitial cystitis (chronic) without hematuria Details of Present Illness: 47 year old female with h/o IC for over 10 years, has been on [place], complains of increasing irritative voiding symptoms Relevant Family History (Specify if Yes): No Allergies: Allergies Allergy/AdvReac Type Severity Reaction Status Date / Time levofloxacin [From LEVAQUIN] Allergy Intermediate redness Verified 08/21/22 09:10 and itchiness latex [LATEX] Allergy Unknown RASH Verified 08/21/22 09:10 Review of Systems Review of Systems Comment: 10 point ROS negative other than stated in HPI Exam Surgical H&P Exam: Normal: HEENT, Normal: Heart, Normal: Lungs and Normal: Neurological Plan Diagnosis/Plan: Unchanged I have reviewed the history and physical and performed a pertinent physical examination on my patient. No changes have occurred unless specified. Cystoscopy Hydrodistension. Discussed risks to include but not limited to, blood in the urine, burning with urination, urgency. Time Spent With Patient Time: Total time managing care of this patient today ____ minutes.
[2022-10-09 08:16] VITALS: BP 90/40; PULSE 83; RESP 16; TEMP 36.3; O2SAT 95
--- NOTE | 2022-10-09 08:17 | W.PM.OPN ---
Operative Note Operative Note Date of Service: 10/09/22 Narrative: PREOP DIAGNOSIS: Interstitial cystitis, pelvic pain, POSTOP DIAGNOSIS: Interstitial cystitis, pelvic pain, urethral stenosis PROCEDURE: CYSTOSCOPY HYDRODISTENTION, URETHRAL DILATION, BLADDER INSTILLATION Anethesia: General Surgeon: Dr. Casper Philippe Indications: EVI IS A 47-YEAR-OLD FEMALE WITH HISTORY OF INTERSTITIAL CYSTITIS HAS BEEN ON [place] FOR MANY YEARS HAS HAD FLARE IN IC SYMPTOMS WITH LOWER URINARY TRACT SYMPTOMS OF DYSURIA BLADDER PAIN. Details of procedure: The patient was brought into the operating room placed on the OR table in supine position. 2 g of Ancef IV. General anesthesia was administered. The patient was repositioned into lithotomy position, prepped and draped in the usual sterile fashion. Time-out was done per protocol. On attempting to place the 22 Frisian cystoscope with obturator, this was met with resistance at the urethral meatus. The urethra was dilated starting with an 18 Frisian in gradually dilated up to 24 Frisian. The 22 fr cystoscope was placed transurethrally into the bladder. Urine was drained from the bladder measuring 125 mL. The right and left ureteral orifices were visualized. The entire bladder was visualized. There were no suspicious bladder lesions seen. There were mild trabeculations noted. The bladder was filled with sterile water at 80 cm of water pressure under gravity. The bladder was distended for 2 minutes. Bladder capacity measured 750 mL. Revisualization of the bladder, noted Moderate glomerulations. No Chavez ulcerations. The bladder was refilled with sterile water again at 80 cm of water pressure under gravity. The bladder was distended for 3 minutes. The fluid was drained from the bladder and measured 800 mL. The cystoscope was removed. 2% lidocaine urojet was passed transurethrally, Solution of (1% lidocaine plain, 15 mL, 0.5 % Marcaine 15 mL mixed with 30, 000 units of heparin concentration 5000 units per mL total of 6 mL hepaine) instilled transurethrally into the bladder. The patient was brought out of anesthesia and taken to recovery in stable condition. Complications: None Drains: none
[2022-10-09 08:25] VITALS: BP 94/58; PULSE 76; RESP 16; O2SAT 96
[2022-10-09 08:30] VITALS: BP 96/62; PULSE 75; RESP 16; O2SAT 96
[2022-10-09 08:45] VITALS: BP 140/49; PULSE 76; RESP 16; TEMP 36.2; O2SAT 97
[2022-10-09 08:59] VITALS: BP 118/70; PULSE 68; RESP 16; TEMP 36.2; O2SAT 98
== END 2022-10-09 09:42 | disposition home or self-care (01) ==
PROVIDERS: PCP Pediatrics; Visit Provider Urology
PROC: 0T7B7ZZ Dilation of Bladder, Via Natural or Artificial Opening (ICD-10-PCS; CPT 52260; principal; 2022-10-09 07:30)
DX: N30.10 Interstitial cystitis (chronic) without hematuria (principal); N32.89 Other specified disorders of bladder; N35.92 Unspecified urethral stricture, female; R10.2 Pelvic and perineal pain; R30.0 Dysuria; K50.919 Crohn's disease, unspecified, with unspecified complications; F31.81 Bipolar II disorder; F41.1 Generalized anxiety disorder; Z79.899 Other long term (current) drug therapy; Z88.0 Allergy status to penicillin; Z91.040 Latex allergy status
CPT/HCPCS: 52260; 51700; J0690; J1100; J1643; J1885; J2250; J2405; J2795; J3010

== ENCOUNTER → 2022-10-09 05:51 | Outpatient (BNV) | payer BC, SELFPAY | PROVIDERS: PCP Pediatrics; Visit Provider Urology | DX: N30.10 Interstitial cystitis (chronic) without hematuria (principal); N35.92 Unspecified urethral stricture, female | CPT/HCPCS: 51700; 52260 ==

== ENCOUNTER 2022-11-02 14:46 | Outpatient (AMB) | payer BC, SELFPAY ==
--- NOTE | 2022-11-02 14:53 | MHC.OFFVIS ---
Intake Intake Visit Reasons: 3w follow up Intake Note: Patient presents for follow up post cystoscopy hydrodistention/interstitial cystitis Urology Medications: tadalafil Blood Thinner: none PVR: 0ml Health Program Director Required: No Accompanied by: Self / Same As Patient Allergies levofloxacin [From LEVAQUIN] Allergy (Intermediate, Verified 11/04/22 08:56) redness and itchiness latex [LATEX] Allergy (Unknown, Verified 11/04/22 08:56) RASH Medication List - Last Reconciled 11/04/22 by KATHY Kenney- amitriptyline 50 mg PO BEDTIME cholecalciferol (vitamin D3) 250 mcg PO DAILY hyoscyamine sulfate 0.125 mg sublingual DAILY PRN levonorgestrel (Mirena) 1 device intrauterine ONCE methocarbamol 750 mg PO TID PRN ondansetron HCl 4 mg PO Q8H PRN oxcarbazepine 300 mg PO BID tadalafil (Cialis) 5 mg PO DAILY 90 days zolpidem 10 mg PO BEDTIME PRN HPI HPI Comments History of Present Illness Details Joycelyn is a very pleasant 47-year-old female patient of Dr. Jimenez who was accompanied by her 8 year old daughter Kristen at today's visit. She presents to the office today for follow-up of her interstitial cystitis. She has a past medical history of Raynaud phenomenon, anxiety, bipolar 2 disorder, Crohn's disease, depression, diverticulitis, interstitial cystitis, IBS, and fibromyalgia. When asked she reports to be doing and feeling well. Of note, patient is status post cysto hydrodistention with Dr. Anthony Hall 10/09. She reports noting dysuria status post cysto hydrodistention for approximately 2 weeks. However, feels urinary symptoms are much improved. She continues with low-dose Cialis 5 mg daily. When asked she reports to be happy with her current voiding parameters. She continues with FODMAP diet. In office urinalysis results reviewed with the patient today. PVR 0mL. Discussed and stressed the importance of drinking plenty of water daily. When asked patient denies incontinence, hematuria, dysuria, foul-smelling urine, changes to urinary stream, flank pain, fever, and or chills. 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 Gender identity: Female Vision needs: Yes (glasses) Female Reproductive History Menstrual Age of Menarche: 10 Review of Systems Const Reports as per HPI Eyes Reports no additional complaints ENT Reports no additional complaints Card Reports no additional complaints Resp Reports no additional complaints GI Reports as per HPI Reports as per HPI Musc Reports as per HPI Neuro Reports as per HPI Psych Reports as per HPI Endo Reports no additional complaints Physical Exam Const General: cooperative, healthy appearing, comfortable, no acute distress, well developed, alert and awake Orientation/consciousness: patient oriented x3 Limitations: no limitations HEENT Head: Yes normal to inspection, Yes normocephalic and Yes atraumatic Ears: hearing grossly normal bilaterally Eyes General: appearance normal, both eyes and all related structures Neck Neck: Yes normal visual inspection and Yes trachea midline Chest Chest palpation & inspection: normal inspection of the chest Resp Effort & Inspection: normal respiratory effort and able to speak in complete sentences Cardio Rate: regular rate GI Inspection: Yes normal to inspection General: Yes no CVA tenderness Back/Spine/Pelvis Back: no CVA tenderness Skin General skin exam: no rashes or lesions noted Neuro General: patient oriented x3 Extrem General: Yes normal to inspection Psych Appearance: grossly normal and well kempt Mental Status: mental status grossly normal Speech and movement: Normal speech and movement present and Clear speech present Affect: normal affect Attitude: cooperative Thought process: Normal thought process present Thought content: Normal thought content present Insight: Fair insight present (Psych) Judgement: Fair judgement present (Psych) Results AMB Urinalysis, Automated UA Leukoctes 15 Sally/uL Last Edit by Priscilla Barker on 11/02/22 15:21 UA Nitrite Last Edit by Priscilla Barker on 11/02/22 15:21 UA Urobilinogen 0.2 mg/dL Last Edit by Priscilla Brookschris on 11/02/22 15:21 UA Protein 15 mg/dL Last Edit by Priscilla Ceciliachris on 11/02/22 15:21 UA pH 6.0 Last Edit by Priscilla Ceciliachris on 11/02/22 15:21 UA Blood 0 Will/uL Last Edit by Priscilla Barker on 11/02/22 15:21 UA Specific [place] 1.025 Last Edit by Jerrysneha Ceciliachris on 11/02/22 15:21 UA Ketone Negative Last Edit by Priscilla Ceciliachris on 11/02/22 15:21 UA Bilirubin 0 mg/dL Last Edit by Priscilla Barker on 11/02/22 15:21 UA Glucose 0 mg/dL Last Edit by Priscilla Barker on 11/02/22 15:21 Results Reviewed Results Reviewed: Laboratory Last Values Urine pH (Auto) 6.0 11/02/22 15:20 Specific [place] (Auto) 1.025 11/02/22 15:20 Urine Protein (Auto) 15 mg/dL 11/02/22 15:20 Glucose (UA)(Auto) 0 mg/dL 11/02/22 15:20 Urine Ketones (Auto) Negative 11/02/22 15:20 Urine Blood (Auto) 0 Will/uL 11/02/22 15:20 Urine Bilirubin (Auto) 0 mg/dL 11/02/22 15:20 Urine Urobilinogen (Auto) 0.2 mg/dL 11/02/22 15:20 Leukocyte Esterase (Auto) 15 Sally/uL 11/02/22 15:20 Assessment & Plan Assessment & Plan (1) Interstitial cystitis: Code(s): N30.10 - Interstitial cystitis (chronic) without hematuria Plan In office urinalysis results reviewed with the patient today; as noted above. PVR-0ml's Discussed continuing to void bladder triggers/irritants Continue drinking plenty of water daily. Patient reports to be happy with current voiding parameter status post cystoscopy hydrodistention 10/09 and low-dose 5 mg of Cialis daily. Follow-up in 3 months with PVR; or sooner with any issues, concerns, and or questions. Orders: Orders AMB Urinalysis Automated 11/02/22 Z13.9 - Encounter for screening, unspecified Patient Instructions: The patient had an opportunity to ask questions regarding the treatment plan. All questions were answered. Physical exam, labs, and imaging were discussed and reviewed in detail. As well as risks, benefits, and discussion of treatment choices. No major barriers to understanding were identified. The patient expressed understanding and agreement with the above treatment plan. The patient was made aware they should contact our office by phone for worsening of their current condition, the appearance of new symptoms, or with any questions or concerns. Compliance is encouraged with any medications and follow up testing that is ordered. It is a privilege to be allowed the opportunity to participate in? your urological care.? Again, if you have any questions or concerns If you have any questions or concerns please do not hesitate to contact me. The office is [phone]. This note is constructed using voice recognition software. While every effort has been made to ensure accuracy tank crewmember errors may have been included. Yours sincerely, CATALINA Kenney Coding Level of Care Code Est Pt Level 3 (49069) Diagnoses Interstitial cystitis N30.10
== END 2022-11-02 16:06 | disposition home or self-care (01) ==
PROVIDERS: PCP Pediatrics; Visit Provider Nurse Practitioner Family
DX: N30.10 Interstitial cystitis (chronic) without hematuria (principal)
CPT/HCPCS: 99213

== ENCOUNTER → 2022-11-02 14:46 | Outpatient (BNVA) | payer BC, SELFPAY | PROVIDERS: PCP Pediatrics; Visit Provider Nurse Practitioner Family | DX: N30.10 Interstitial cystitis (chronic) without hematuria (principal); M79.7 Fibromyalgia; Z96.0 Presence of urogenital implants; Z79.899 Other long term (current) drug therapy | CPT/HCPCS: 81003 ==

== ENCOUNTER 2022-12-19 09:44 | Outpatient (REF) | payer BC, SELFPAY | END 2022-12-19 09:45 | disposition home or self-care (01) | LOC: HO.XRAY 09:44 | PROVIDERS: PCP Pediatrics; Visit Provider Student in an Organized Health Care Education/Training Program | DX: M54.2 Cervicalgia (principal); R20.0 Anesthesia of skin; R20.2 Paresthesia of skin; M54.16 Radiculopathy, lumbar region | CPT/HCPCS: 72050; 72110 ==

== ENCOUNTER 2022-12-19 09:44 | Outpatient (AMB) | payer BC, SELFPAY ==
[2022-12-19 10:03] VITALS: BP 122/76; PULSE 79; TEMP 36.3; O2SAT 96; BMI 32.0
--- NOTE | 2022-12-19 10:03 | MHC.OFFVIS ---
Intake Vital Signs 12/19/22 10:03 Height 5 ft Weight 163 lb 12.855 oz BMI 32.0 BP 122/76 Blood Pressure Location Rt brachial Position Sitting Pulse 79 Pulse Source Pulse Oximeter Temp 97.3 F Temp Source Skin Pulse Oximetry (%) 96 Intake Visit Reasons: FM Intake Note: Pt seen today for 1 year FM follow up. She states she feels her meds are not working. C/o low back pain that radiates up and down. Also reports neck pain and bl hand tingling and numbing; head to toe itching States she has mentioned her back pain to all her doctors and nobody wants to listen. 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 Required: No Accompanied by: Self / Same As Patient Allergies levofloxacin [From LEVAQUIN] Allergy (Intermediate, Verified 12/19/22 10:07) redness and itchiness latex [LATEX] Allergy (Unknown, Verified 12/19/22 10:07) RASH Medication List - Last Reconciled 12/19/22 by Farhat Lowry MD amitriptyline 50 mg PO BEDTIME cholecalciferol (vitamin D3) 250 mcg PO DAILY hyoscyamine sulfate 0.125 mg sublingual DAILY PRN levonorgestrel (Mirena) 1 device intrauterine ONCE methocarbamol 750 mg PO TID PRN ondansetron HCl 4 mg PO Q8H PRN oxcarbazepine 300 mg PO BID tadalafil (Cialis) 5 mg PO DAILY 90 days zolpidem 10 mg PO BEDTIME PRN HPI HPI Comments History of Present Illness Details Pt seen today for 1 year FM follow up. She states she feels her meds are not working. C/o low back pain that radiates up and down. Also reports neck pain and bl hand tingling and numbing; head to toe itching? States she has mentioned her back pain to all her doctors and nobody wants to listen.? Initial history: 46-year-old female presents for evaluation of fibromyalgia. Her fibromyalgia was diagnosed more than 10 years ago. She used to see Dr. Vitale at [facility]. She could not tolerate gabapentin, also failed Lyrica in the past. She is currently on amitriptyline, Ambien, methocarbamol and nabumetone. Patient feels her fibromyalgia is about the same. Diffuse pain, some days worse than others. Ongoing fatigue. Still able to go to work and take care of her children and pets. Patient states she is able to sleep well when she takes the Ambien. But she tosses and turns all night and generally does not wake up refreshed. She states that in the cold her fingers change color to read associated with tingling and numbness. 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 Gender identity: Female Vision needs: Yes (glasses) Female Reproductive History Menstrual Age of Menarche: 10 Review of Systems Musc Reports back pain, Reports arthralgias, Reports numbness, Reports radiating pain into limb, Reports stiffness and Reports tingling Neuro Reports numbness and Reports tingling Physical Exam Vital Signs: Last Vital Signs Temp 97.3 F 12/19/22 10:03 Pulse 79 12/19/22 10:03 BP 122/76 12/19/22 10:03 Pulse Ox 96 12/19/22 10:03 BMI result Body Mass Index 32.0 Const General: cooperative, healthy appearing, comfortable and no acute distress Nutritional Appearance: overweight Orientation/consciousness: patient oriented x3 Limitations: no limitations HEENT Head: Yes normocephalic Mouth: Normal oral and palatal mucosa present Resp Effort & Inspection: normal respiratory effort and able to speak in complete sentences Auscultation: clear to auscultation bilaterally Cardio Rate: regular rate Rhythm: regular rhythm Skin General skin exam: no rashes or lesions noted Neuro General: patient oriented x3 Extrem Other: Normal nailfold capillaroscopy No synovitis Multiple fibromyalgia tender point Negative Tinel sign and balance test bilaterally Positive straight leg raise test on the right Assessment & Plan Assessment & Plan (1) Cervicalgia: Code(s): M54.2 - Cervicalgia Plan: Check a neck x-ray (2) Numbness and tingling in both hands: Code(s): R20.0 - Anesthesia of skin; R20.2 - Paresthesia of skin Plan: EMG/NCV of both upper extremities in 2017 was unremarkable. Will repeat (3) Radiculopathy: Code(s): M54.10 - Radiculopathy, site unspecified Qualifiers: Spinal region: lumbar Qualified Code(s): M54.16 - Radiculopathy, lumbar region Plan: Will check an L-spine x-ray and referred patient to pain management Consider Salonpas patch Plan I spent 28 minutes reviewing patient's chart, evaluating patient, ordering diagnostic workup, counseling patient and documenting in the chart Orders: Orders XR lumbar spine 4V min Today M54.10 - Radiculopathy, site unspecified XR cervical spine 4V Today M54.2 - Cervicalgia NE electromyogram (EMG) Today G56.03 - Carpal tunnel syndrome, bilateral upper limbs Referrals Pain Management Referral M54.10 - Radiculopathy, site unspecified Coding Level of Care Code Est Pt Level 4 (65293) Diagnoses Cervicalgia M54.2 Numbness and tingling in both hands R20.0; R20.2 Lumbar radiculopathy M54.16 Spinal region: lumbar
== END 2022-12-19 10:21 | disposition home or self-care (01) ==
PROVIDERS: PCP Pediatrics; Visit Provider Student in an Organized Health Care Education/Training Program
DX: M54.2 Cervicalgia (principal); R20.0 Anesthesia of skin; R20.2 Paresthesia of skin; M54.16 Radiculopathy, lumbar region
CPT/HCPCS: 99214

== ENCOUNTER 2022-12-25 09:20 | Outpatient (AMB) | payer BC, SELFPAY ==
--- NOTE | 2022-12-25 09:22 | MHC.OFFVIS ---
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 Denies any past or recent trauma, injury or falls. Back pain is mostly axial with occasional radiation to her lateral hip and thigh but not below knee level. Reports chronic bilateral knee pain, worse with climbing stairs. Patient also presents with widespread body pain consistent with fibromyalgia. Neck pain has been minimal in the past few weeks. Denies previous spine surgery or injections. Every movement, any activity or weather changes increase her back pain. Pain affects her daily activities, functioning, sleep, social activities, mood and quality of life. Denies any fever, abdominal or groin pain, weakness, gait instability or imbalance, bladder or bowel dysfunction, or saddle anesthesia. Location Lower back, bilateral knee pain Duration Chronic pain for many years Characteristics of symptom or complaint Aching, burning, tingling, dull, numbness, tiring Aggravating or associated factors Movements, walking, sitting, climbing stairs, weather changes Relieving factors Rest, laying down, Tylenol, Marijuana (dispensary), methocarbamol Treatment PT, chiropractic therapy- 3 years ago, no improvement [facility] Medical History (Updated 12/25/22 @ 19:47 by KATHY Bishop) Carpal tunnel syndrome, bilateral Diverticulitis Crohn disease Interstitial cystitis Bipolar 2 disorder Anxiety Depression Surgical History S/P ureteral stent placement History of tubal ligation Social History Household Members: Spouse and Family Housing: House Alcohol intake: never Patient Tobacco Use Status: Never used Tobacco e-Cigarette/Vaping Use: Never Used Second Hand Smoke Exposure: No service: No 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 Alert and oriented. Mood and affect appropriate. Follows and participates in conversation appropriately. Respiratory effort is unlabored. No cough. Able to transition from sit to stand unassisted. Ambulates with bilaterally normal heel strike and toe off. Back/Spine/Pelvis Other: Patient is able to walk and stand on heels and tip toes with no difficulties demonstrating good motor tone. No limping. Can flex forward to 65-70 degrees and extend to 5-10 degrees before experiencing lumbar pain. Demonstrates 5/5 strength of quadriceps bilaterally as well as flexion/dorsiflexion of bilateral feet against resistance. 2+ pedal pulses bilaterally. Seated and Supine straight leg rise with dorsiflexion negative bilaterally. +2 right and +1 left patellar and +2 achilles reflexes bilaterally. Facet loading test positive bilaterally. Estrellita sign, Jaime?s, Pelvic compression and Stinchfield tests are negative bilaterally. No groin pain with I/E hip rotations. Multiple tender 16/16 TTP points upper and lower extremities. Cervical Spine: cervical ROM normal, cervical muscular tenderness and No Cervical spine tenderness Thoracic/Lumbar Spine: thoracic and lumbar spine normal to inspection, No Thoracic/lumbar spine scar(s), Lasegue's sign negative, straight leg raise negative bilaterally, pain with thoraco-lumbar ROM, paraspinal muscle tenderness, No thoracic spinal tenderness and No lumbar spinal tenderness Sacroiliac joints: bilaterally tender to palpation Extrem General: Yes capillary refill normal, Yes no clubbing, cyanosis or edema and Yes no calf tenderness Right lower extremity: knee Details: normal to inspection, tenderness Location: of the medial joint line and of the lateral joint line, normal ROM and crepitus (with flexion); no swelling, no ecchymosis, no deformity and no unusual warmth Left lower extremity: knee Details: normal to inspection, tenderness Location: of the medial joint line and of the lateral joint line and normal ROM; no swelling, no ecchymosis, no crepitus, no deformity and no unusual warmth Results Reviewed Results Reviewed: CERVICAL SPINE 3 VIEWS 12/19/22 CLINICAL INFORMATION: Cervicalgia. COMPARISON: None. TECHNIQUE: Frontal, odontoid, bilateral oblique and lateral of the cervical spine are obtained. FINDINGS: Vertebral body heights and alignment are normal. The disc spaces are well-maintained. No acute fracture or spondylolisthesis is seen. There is very mild anterior spondylosis at C6-C7. The posterior elements are intact. The neural foramina appear patent on the oblique views, with some over rotation on the right oblique view. There is no prevertebral soft tissue swelling. The dens and C7-T1 interface are normal. IMPRESSION: 1. No acute fracture or spondylolisthesis is seen. 2. The cervical disc spaces are well-maintained. 3. There is very mild anterior spondylosis at C6-C7. 4. The bilateral neural foramina appear patent. XR LUMBOSACRAL SPINE 12/19/22 CLINICAL INFORMATION: Radiculopathy. COMPARISON: None TECHNIQUE: AP, bilateral oblique and lateral views of the lumbar spine and lateral view of the lumbosacral junction. FINDINGS: The vertebral bodies and posterior elements are normal. The disc spaces are preserved and the vertebral alignment is normal. There is multi-level mild lower thoracic spondylosis. The paraspinal soft tissues are normal. IMPRESSION: 1. Unremarkable radiographic appearance of the lumbar spine. 2. There is multi-level mild lower thoracic spondylosis. Assessment & Plan Assessment & Plan (1) Fibromyalgia: Code(s): M79.7 - Fibromyalgia (2) Low back pain: Code(s): M54.50 - Low back pain, unspecified (3) Bilateral knee pain: Code(s): M25.561 - Pain in right knee; M25.562 - Pain in left knee (4) Cervicalgia: Code(s): M54.2 - Cervicalgia (5) Chronic pain syndrome: Code(s): G89.4 - Chronic pain syndrome Plan 1. Recommend formal physical therapy (Virtual Reality PT per patient?s request) for fibromyalgia, lower back, neck, and bilateral knee pain. A script was provided via [email or web address] Also recommend for fibromyalgia: CBT, aqua therapy, gentle exercise and daily physical activity, plant based diet, stress management, sleep hygiene, good posture, adequate hydration and weight optimization. 2. Bilateral knee xrays to assess degree of arthritis prior to consideration of interventional treatments. 3. Scripts provided for lidocaine patches for back and knee pain. Attempted script for Savella for fibromyalgia, unfortunatelly patient's insurance did not cover it. Script provided for duloxetine 30 mg daily, if well tolerated will increase to twice daily after 2-3 weeks of daily dose intake. All questions and concerns have been answered and patient agreed with the plan. Follow up after PT/medication review and sooner as needed. Orders: Orders XR knee LT 3V Today M25.561 - Pain in right knee, M25.562 - Pain in left knee XR knee RT 3V Today M25.561 - Pain in right knee, M25.562 - Pain in left knee Medications: New lidocaine 5% leave on most painful area for up to 12 hrs topical 30 ea 0RF pain lidocaine 5% 2 patches topical DAILY 30 days 30 ea 1RF pain M25.561 - Pain in right knee, M25.562 - Pain in left knee, M54.50 - Low back pain, unspecified duloxetine 30 mg PO DAILY 30 days 30 caps 0RF pain M79.7 - Fibromyalgia Coding Level of Care Code New Pt Level 4 (06958) Diagnoses Fibromyalgia M79.7 Low back pain M54.50 Bilateral knee pain M25.561; M25.562 Cervicalgia M54.2 Chronic pain syndrome G89.4
[2022-12-25 09:26] VITALS: BP 127/59; PULSE 72; O2SAT 99; BMI 31.7
== END 2022-12-25 10:05 | disposition home or self-care (01) ==
PROVIDERS: PCP Pediatrics; Visit Provider Nurse Practitioner Family
DX: M79.7 Fibromyalgia (principal); M54.50 Low back pain, unspecified; M25.561 Pain in right knee; M25.562 Pain in left knee; M54.2 Cervicalgia; G89.4 Chronic pain syndrome
CPT/HCPCS: 99204; 99214

== ENCOUNTER 2022-12-25 09:20 | Outpatient (REF) | payer BC, SELFPAY ==
--- NOTE | ~2022-12-25 | XR_ITS ---
EXAMINATION: XR KNEE, LEFT CLINICAL INFORMATION: Knee pain. COMPARISON: None available. TECHNIQUE: Three views of the left knee. FINDINGS: Right distal femoral and bone islands. No fracture or joint effusion appreciated. Alignment is anatomic. Joint spaces appear maintained. No abnormal soft tissue calcification. XR/XR knee LT 3V IMPRESSION: Unremarkable plain film examination of the left knee.
--- NOTE | ~2022-12-25 | XR_ITS ---
EXAMINATION: XR KNEE, RIGHT CLINICAL INFORMATION: Knee pain. COMPARISON: None available. TECHNIQUE: Three views of the right knee. FINDINGS: No fracture or joint effusion appreciated. Alignment is anatomic. Joint spaces appear maintained. No abnormal soft tissue calcification. XR/XR knee RT 3V IMPRESSION: Unremarkable plain film examination of the right knee.
== END 2022-12-25 09:21 | disposition home or self-care (01) ==
LOC: HO.XRAY 09:20
PROVIDERS: PCP Pediatrics; Visit Provider Nurse Practitioner Family
DX: M25.561 Pain in right knee (principal); M25.562 Pain in left knee
CPT/HCPCS: 73562

== ENCOUNTER 2023-02-14 13:18 | Outpatient (AMB) | payer BC, SELFPAY ==
--- NOTE | 2023-02-14 13:56 | A.OFFVIS_ITS ---
Intake Intake Visit Reasons: 3 month pvr Intake Note: Patient presents for follow up interstitial cystitis Urology Medications: tadalafil Blood Thinner: none PVR: 112ml's Temporary Administrative Assistant Required: No Accompanied by: Self / Same As Patient Allergies levofloxacin [From LEVAQUIN] Allergy (Intermediate, Verified 02/14/23 14:37) redness and itchiness latex [LATEX] Allergy (Unknown, Verified 02/14/23 14:37) RASH Medication List - Last Reconciled 02/14/23 by CATALINA Kenney amitriptyline 50 mg PO BEDTIME cholecalciferol (vitamin D3) 250 mcg PO DAILY duloxetine 30 mg PO DAILY 30 days hyoscyamine sulfate 0.125 mg sublingual DAILY PRN levonorgestrel (Mirena) 1 device intrauterine ONCE lidocaine 5% 2 patches topical DAILY 30 days methocarbamol 750 mg PO TID PRN ondansetron HCl 4 mg PO Q8H PRN oxcarbazepine 300 mg PO BID tadalafil (Cialis) 5 mg PO DAILY 90 days zolpidem 10 mg PO BEDTIME PRN HPI HPI Comments History of Present Illness Details Joycelyn is a very pleasant 47-year-old female patient of Dr. Jimenez. She presents to the office today for follow-up of her interstitial cystitis. She has a past medical history of Raynaud phenomenon, anxiety, bipolar 2 disorder, Crohn's disease, depression, diverticulitis, interstitial cystitis, IBS, and fibromyalgia. When asked she reports to be doing and feeling well. She discusses compliance with 5 mg of Cialis daily for bladder stability. She reports noting significant improvement in lower urinary tract symptoms while taking Cialis. Of note, patient is status post cysto hydrodistention with Dr. Anthony Hall 10/09. When asked she reports to be happy with her current voiding parameters. She continues with FODMAP diet. In office urinalysis results reviewed with the patient today. PVR 112mL. Discussed causes and affects of incomplete bladder emptying. Discussed and stressed the importance of drinking plenty of water daily. When asked patient denies incontinence, hematuria, dysuria, foul-smelling urine, changes to urinary stream, flank pain, fever, and or chills. 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 [employer] Gender identity: Female Vision needs: Yes (glasses) Female Reproductive History Menstrual Age of Menarche: 10 Review of Systems Const Reports as per HPI Eyes Reports no additional complaints ENT Reports no additional complaints Card Reports no additional complaints Resp Reports no additional complaints GI Reports as per HPI Reports as per HPI Musc Reports as per HPI Neuro Reports as per HPI Psych Reports as per HPI Endo Reports no additional complaints Physical Exam Const General: cooperative, healthy appearing, comfortable, no acute distress, well developed, alert and awake Orientation/consciousness: patient oriented x3 Limitations: no limitations HEENT Head: Yes normal to inspection, Yes normocephalic and Yes atraumatic Ears: hearing grossly normal bilaterally Eyes General: appearance normal, both eyes and all related structures Neck Neck: Yes normal visual inspection and Yes trachea midline Chest Chest palpation & inspection: normal inspection of the chest Resp Effort & Inspection: normal respiratory effort and able to speak in complete sentences Cardio Rate: regular rate GI Inspection: Yes normal to inspection General: Yes no CVA tenderness Back/Spine/Pelvis Back: no CVA tenderness Skin General skin exam: no rashes or lesions noted Neuro General: patient oriented x3 Extrem General: Yes normal to inspection Psych Appearance: grossly normal and well kempt Mental Status: mental status grossly normal Speech and movement: Normal speech and movement present and Clear speech present Affect: normal affect Attitude: cooperative Thought process: Normal thought process present Thought content: Normal thought content present Insight: Fair insight present (Psych) Judgement: Fair judgement present (Psych) Office Procedures Post Void Residual Post Residual Void Post Void Residual (PVR): 112 [id number]-Gphi Void Residual by ultrasound Results AMB Urinalysis, Automated UA Leukoctes 15 Sally/uL Last Edit by Priscilla Barker on 02/14/23 14:12 UA Nitrite Negative Last Edit by Priscilla Barker on 02/14/23 14:12 UA Urobilinogen 0.2 mg/dL Last Edit by OOHLALA [employer]neha Barker on 02/14/23 14:12 UA Protein 0 mg/dL Last Edit by Priscilla Barker on 02/14/23 14:12 UA pH 6.0 Last Edit by Priscilla Barker on 02/14/23 14:12 UA Blood 0 Will/uL Last Edit by Priscilla Barker on 02/14/23 14:12 UA Specific [place] 1.025 Last Edit by OOHLALA [employer]ilesneha [employer]chris on 02/14/23 14:12 UA Ketone Negative Last Edit by Silvercare Solutionschris on 02/14/23 14:12 UA Bilirubin 0 mg/dL Last Edit by OOHLALA [employer]ilesneha Barker on 02/14/23 14:12 UA Glucose 0 mg/dL Last Edit by OOHLALA [employer]ilesneha Barker on 02/14/23 14:12 Results Reviewed Results Reviewed: Laboratory Last Values Urine pH (Auto) 6.0 02/14/23 14:06 Specific [place] (Auto) 1.025 02/14/23 14:06 Urine Protein (Auto) 0 mg/dL 02/14/23 14:06 Glucose (UA)(Auto) 0 mg/dL 02/14/23 14:06 Urine Ketones (Auto) Negative 02/14/23 14:06 Urine Blood (Auto) 0 Will/uL 02/14/23 14:06 Urine Nitrite (Auto) Negative 02/14/23 14:06 Urine Bilirubin (Auto) 0 mg/dL 02/14/23 14:06 Urine Urobilinogen (Auto) 0.2 mg/dL 02/14/23 14:06 Leukocyte Esterase (Auto) 15 Sally/uL 02/14/23 14:06 Assessment & Plan Assessment & Plan (1) Interstitial cystitis: Code(s): N30.10 - Interstitial cystitis (chronic) without hematuria Plan In office urinalysis results reviewed with the patient today; as noted above. PVR 112 mL. Continue Cialis 5 mg daily. Patient reports be happy with current voiding parameters. Patient denies any bothersome urinary issues or concerns at this time. Discussed at length causes and affects of incomplete bladder emptying. Discussed attempting to double void. Discussed bladder triggers/irritants. Discussed possible near future Gemtesa if symptoms rearise. Follow-up in 6 months with PVR; or sooner with any issues, concerns, and or questions. Orders: Orders AMB Post Void Residual by ultrasound Today N30.10 - Interstitial cystitis (chronic) without hematuria AMB Urinalysis Automated Today Z13.9 - Encounter for screening, unspecified Medications: Refilled tadalafil (Cialis) BIN N Group [facility] DR33 [id number] 5 mg PO DAILY 90 tabs 3RF 90 days Patient Instructions: The patient had an opportunity to ask questions regarding the treatment plan. All questions were answered. Physical exam, labs, and imaging were discussed and reviewed in detail. As well as risks, benefits, and discussion of treatment choices. No major barriers to understanding were identified. The patient expressed understanding and agreement with the above treatment plan. The patient was made aware they should contact our office by phone for worsening of their current condition, the appearance of new symptoms, or with any questio ns or concerns. Compliance is encouraged with any medications and follow up testing that is ordered. It is a privilege to be allowed the opportunity to participate in? your urological care.? Again, if you have any questions or concerns If you have any questions or concerns please do not hesitate to contact me. The office is [phone]. This note is constructed using voice recognition software. While every effort has been made to ensure accuracy phlebotomy technologist errors may have been included. Yours sincerely, CATALINA Kenney Coding Level of Care Code Est Pt Level 3 (10164) Diagnoses Interstitial cystitis N30.10 CPT Codes Post Residual Void - PVR CPT Code: 87203-Ifcc Void Residual by ultrasound ([id number])
== END 2023-02-14 14:38 | disposition home or self-care (01) ==
PROVIDERS: PCP Pediatrics; Visit Provider Nurse Practitioner Family
DX: N30.10 Interstitial cystitis (chronic) without hematuria (principal)
CPT/HCPCS: 99213

== ENCOUNTER → 2023-02-14 13:18 | Outpatient (BNVA) | payer BC, SELFPAY | PROVIDERS: PCP Pediatrics; Visit Provider Nurse Practitioner Family | DX: N30.10 Interstitial cystitis (chronic) without hematuria (principal); Z79.899 Other long term (current) drug therapy | CPT/HCPCS: 51798; 81003 ==

== ENCOUNTER 2023-03-22 09:07 | Outpatient (REF) | payer BC, SELFPAY | END 2023-03-22 09:08 | disposition home or self-care (01) | LOC: HO.NEURO 09:07 | PROVIDERS: PCP Pediatrics; Visit Provider Student in an Organized Health Care Education/Training Program | DX: G56.03 Carpal tunnel syndrome, bilateral upper limbs (principal) | CPT/HCPCS: 95886; 95911 ==

== ENCOUNTER → 2023-03-22 09:09 | Outpatient (BNV) | payer BC, SELFPAY | PROVIDERS: PCP Pediatrics; Visit Provider Physical Medicine & Rehabilitation | DX: M79.641 Pain in right hand (principal); M79.642 Pain in left hand; M79.601 Pain in right arm; M79.602 Pain in left arm | CPT/HCPCS: 95886; 95911 ==

== ENCOUNTER 2023-04-16 15:46 | Outpatient (AMB) | payer SELFPAY ==
[2023-04-16 16:02] VITALS: BP 128/78; PULSE 77; RESP 17; TEMP 36.3; O2SAT 100; BMI 33.4
--- NOTE | 2023-04-16 16:02 | A.OFFVIS_ITS ---
Intake Vital Signs 04/16/23 16:02 Height 4 ft 10 in Weight 160 lb 0.889 oz BMI 33.4 BP 128/78 Blood Pressure Location Rt brachial Position Sitting Respiration 17 Pulse 77 Pulse Source Pulse Oximeter Temp 97.3 F Temp Source Tympanic Pulse Oximetry (%) 100 Oxygen Delivery Method Room Air Intake Visit Reasons: FMS Allergies levofloxacin [From LEVAQUIN] Allergy (Intermediate, Verified 04/16/23 16:07) redness and itchiness latex [LATEX] Allergy (Unknown, Verified 04/16/23 16:07) RASH Medication List - Last Reconciled 04/16/23 by Farhat Lowry MD amitriptyline 50 mg PO BEDTIME cholecalciferol (vitamin D3) 250 mcg PO DAILY duloxetine 30 mg PO DAILY 30 days hyoscyamine sulfate 0.125 mg sublingual DAILY PRN levonorgestrel (Mirena) 1 device intrauterine ONCE lidocaine 5% 2 patches topical DAILY 30 days ondansetron HCl 4 mg PO Q8H PRN oxcarbazepine 300 mg PO BID tadalafil (Cialis) 5 mg PO DAILY 90 days tadalafil 5 mg PO DAILY zolpidem 10 mg PO BEDTIME PRN HPI HPI Comments History of Present Illness Details 48-year-old female with fibromyalgia ret urns for follow-up. After last visit. She was evaluated by Pain Management and started on Cymbalta 30 mg daily. She feels that the Cymbalta has significantly helped her pains however she continues to have lower back pain. She was also prescribed lidocaine patches by Pain Management which are helping. She has not gone back for follow- up though. Initial history: 46-year-old female presents for evaluation of fibromyalgia. Her fibromyalgia was diagnosed more than 10 years ago. She used to see Dr. Vitale at [place]. She could not tolerate gabapentin, also failed Lyrica in the past. She is currently on amitriptyline, Ambien, methocarbamol and nabumetone. Patient feels her fibromyalgia is about the same. Diffuse pain, some days worse than others. Ongoing fatigue. Still able to go to work and take care of her children and pets. Patient states she is able to sleep well when she takes the Ambien. But she tosses and turns all night and generally does not wake up refreshed. She states that in the cold her fingers change color to read associated with tingling and numbness. 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 Gender identity: Female Vision needs: Yes (glasses) Female Reproductive History Menstrual Age of Menarche: 10 Review of Systems [facility] Reports back pain and Reports arthralgias Physical Exam Vital Signs: Last Vital Signs Temp 97.3 F 04/16/23 16:02 Pulse 77 04/16/23 16:02 Resp 17 04/16/23 16:02 BP 128/78 04/16/23 16:02 Pulse Ox 100 04/16/23 16:02 Oxygen Delivery Method Room Air 04/16/23 16:02 BMI result Body Mass Index 33.4 Const General: cooperative, healthy appearing, comfortable and no acute distress Nutritional Appearance: overweight Orientation/consciousness: patient oriented x3 Limitations: no limitations HEENT Head: Yes normocephalic Mouth: Normal oral and palatal mucosa present Resp Effort & Inspection: normal respiratory effort and able to speak in complete sentences Auscultation: clear to auscultation bilaterally Cardio Rate: regular rate Rhythm: regular rhythm Skin General skin exam: no rashes or lesions noted Neuro General: patient oriented x3 Extrem Other: Normal nailfold capillaroscopy No synovitis Few fibromyalgia tender points Negative Tinel sign bilaterally Assessment & Plan Assessment & Plan (1) Fibromyalgia: Code(s): M79.7 - Fibromyalgia Plan: Patient reports significant symptomatic improvement since duloxetine and lidocaine patches were started by Pain Management. Follow-up with pain management (2) Numbness and tingling in both hands: Code(s): R20.0 - Anesthesia of skin; R20.2 - Paresthesia of skin Plan: EMG/NCV 03/2023 was unremarkable. Plan I spent 15 minutes reviewing patient's chart, evaluating patient, counseling patient and documenting in the chart Coding Level of Care Code Est Pt Level 3 (15305) Diagnoses Fibromyalgia M79.7 Numbness and tingling in both hands R20.0; R20.2
== END 2023-04-16 16:27 | disposition home or self-care (01) ==
PROVIDERS: PCP Pediatrics; Visit Provider Student in an Organized Health Care Education/Training Program
DX: M79.7 Fibromyalgia (principal); R20.0 Anesthesia of skin; R20.2 Paresthesia of skin
CPT/HCPCS: 99213

== ENCOUNTER → 2023-04-16 15:46 | Outpatient (BNVA) | payer BC, SELFPAY | PROVIDERS: PCP Pediatrics; Visit Provider Student in an Organized Health Care Education/Training Program ==

== ENCOUNTER 2023-08-14 08:46 | Outpatient (REF) | payer BC, SELFPAY ==
[2023-08-14 16:30] LABS: Urine Cytology See Pathology rpt
== END 2023-08-14 08:47 | disposition home or self-care (01) ==
LOC: HO.LNP 08:46
PROVIDERS: PCP Pediatrics; Visit Provider Nurse Practitioner Family
DX: N30.10 Interstitial cystitis (chronic) without hematuria (principal)
CPT/HCPCS: 51798; 81003; 88112

== ENCOUNTER 2023-08-14 08:46 | Outpatient (AMB) | payer BC, SELFPAY ==
--- NOTE | 2023-08-14 09:03 | MHC.OFFVIS ---
Intake Visit Reasons: 6m follow up Intake Note: Patient presents for follow up interstitial cystitis Urology Medications: tadalafil Blood Thinner: none PVR: 88ml's Equipment Installation Professional Required: No Accompanied by: Self / Same As Patient Allergies levofloxacin [From LEVAQUIN] Allergy (Intermediate, Verified 08/14/23 09:29) redness and itchiness latex [LATEX] Allergy (Unknown, Verified 08/14/23 09:29) RASH Medication List - Last Reconciled 08/14/23 by KATHY Kenney- amitriptyline 50 mg PO BEDTIME cholecalciferol (vitamin D3) 250 mcg PO DAILY duloxetine 30 mg PO DAILY PRN hyoscyamine sulfate 0.125 mg sublingual DAILY PRN levonorgestrel (Mirena) 1 device intrauterine ONCE lidocaine 5% 2 patches topical DAILY 30 days oxcarbazepine 300 mg PO BID tadalafil 5 mg PO DAILY zolpidem 10 mg PO BEDTIME PRN HPI Comments Details: Joycelyn is a very pleasant 48-year-old female patient of Dr. Jimenez. She presents to the office today for follow-up of her interstitial cystitis. She has a past medical history of Raynaud phenomenon, anxiety, bipolar 2 disorder, Crohn's disease, depression, diverticulitis, interstitial cystitis, IBS, and fibromyalgia. When asked she reports to be doing and feeling well. She reports compliance with 5 mg of Cialis daily for bladder stability. She reports this has been extremely helpful in managing symptoms of her interstitial cystitis. She discusses her upcoming trip to [place] to visit her daughter and summer camping she has planned. She currently denies any bothersome urinary issues or concerns. In office urinalysis results reviewed with the patient today. PVR 88 mL. She does report at times feeling the need to strain to completely empty her bladder. Discussed importance of relaxing bladder and not straining and affects of straining on the bladder. Discussed pelvic floor exercises. Of note, patient is status post cysto hydrodistention with Dr. Anthony Hall 10/09. When asked she reports to be happy with her current voiding parameters. She continues with FODMAP diet. Discussed and stressed the importance of drinking plenty of water daily. When asked patient denies incontinence, hematuria, dysuria, foul-smelling urine, changes to urinary stream, flank pain, fever, and or chills. She otherwise offers no other issues or concerns at this time. 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 [email or web address] Gender identity: Female Vision needs: Yes (glasses) Female Reproductive History Menstrual Age of Menarche: 10 Review of Systems Const Reports as per HPI Eyes Reports no additional complaints ENT Reports no additional complaints Card Reports no additional complaints Resp Reports no additional complaints GI Reports as per HPI Reports as per HPI Musc Reports as per HPI Neuro Reports as per HPI Psych Reports as per HPI Endo Reports no additional complaints Physical Exam Const General: cooperative, healthy appearing, comfortable, no acute distress, well developed, alert and awake Orientation/consciousness: patient oriented x3 Limitations: no limitations HEENT Head: Yes normal to inspection, Yes normocephalic and Yes atraumatic Ears: hearing grossly normal bilaterally Eyes General: appearance normal, both eyes and all related structures Neck Neck: Yes normal visual inspection and Yes trachea midline Chest Chest palpation & inspection: normal inspection of the chest Resp Effort & Inspection: normal respiratory effort and able to speak in complete sentences Cardio Rate: regular rate GI Inspection: Yes normal to inspection General: Yes no CVA tenderness Back/Spine/Pelvis Back: no CVA tenderness Skin General skin exam: no rashes or lesions noted Neuro General: patient oriented x3 Extrem General: Yes normal to inspection Psych Appearance: grossly normal and well kempt Mental Status: mental status grossly normal Speech and movement: Normal speech and movement present and Clear speech present Affect: normal affect Attitude: cooperative Thought process: Normal thought process present Thought content: Normal thought content present Insight: Fair insight present (Psych) Judgement: Fair judgement present (Psych) Office Procedures Post Void Residual Post Residual Void Post Void Residual (PVR): 88 [id number] Void Residual by ultrasound Results AMB Urinalysis, Automated UA Leukoctes 15 Sally/uL Last Edit by Priscilla Barker on 08/14/23 09:19 UA Nitrite Negative Last Edit by Priscilla Barker on 08/14/23 09:19 UA Urobilinogen 0.2 mg/dL Last Edit by Priscilla Barker on 08/14/23 09:19 UA Protein 15 mg/dL Last Edit by Priscilla Barker on 08/14/23 09:19 UA pH 6.0 Last Edit by Priscilla Barker on 08/14/23 09:19 UA Blood 10 Will/uL Last Edit by Priscilla Barker on 08/14/23 09:19 UA Specific [place] 1.020 Last Edit by Priscilla Barker on 08/14/23 09:19 UA Ketone Negative Last Edit by Priscilla Barker on 08/14/23 09:19 UA Bilirubin 0 mg/dL Last Edit by Priscilla Barker on 08/14/23 09:19 UA Glucose 0 mg/dL Last Edit by Priscilla Barker on 08/14/23 09:19 Results Reviewed Results Reviewed: Laboratory Last Values Urine pH (Auto) 6.0 08/14/23 09:11 Specific [place] (Auto) 1.020 08/14/23 09:11 Urine Protein (Auto) 15 mg/dL 08/14/23 09:11 Glucose (UA)(Auto) 0 mg/dL 08/14/23 09:11 Urine Ketones (Auto) Negative 08/14/23 09:11 Urine Blood (Auto) 10 Will/uL 08/14/23 09:11 Urine Nitrite (Auto) Negative 08/14/23 09:11 Urine Bilirubin (Auto) 0 mg/dL 08/14/23 09:11 Urine Urobilinogen (Auto) 0.2 mg/dL 08/14/23 09:11 Leukocyte Esterase (Auto) 15 Sally/uL 08/14/23 09:11 Assessment & Plan Assessment & Plan (1) Interstitial cystitis: Code(s): N30.10 - Interstitial cystitis (chronic) without hematuria Category: Medical Plan In office urinalysis results reviewed with the patient today; as noted above. PVR 88 mL. Continue Cialis 5 mg daily. Patient reports be happy with current voiding parameters. Patient denies any bothersome urinary issues or concerns at this time. Discussed attempting to double void. Discussed bladder triggers/irritants. Discussed pelvic floor exercises; information provided. Discussed possible near future Gemtesa if symptoms arise. Follow-up in 6 months with PVR; or sooner with any issues, concerns, and or questions. Orders: Orders AMB Post Void Residual by ultrasound Today N30.10 - Interstitial cystitis (chronic) without hematuria AMB Urinalysis Automated Today Z13.9 - Encounter for screening, unspecified Patient Instructions: The patient had an opportunity to ask questions regarding the treatment plan. All questions were answered. Physical exam, labs, and imaging were discussed and reviewed in detail. As well as risks, benefits, and discussion of treatment choices. No major barriers to understanding were identified. The patient expressed understanding and agreement with the above treatment plan. The patient was made aware they should contact our office by phone for worsening of their current condition, the appearance of new symptoms, or with any questions or concerns. Compliance is encouraged with any medications and follow up testing that is ordered. It is a privilege to be allowed the opportunity to participate in? your urological care.? Again, if you have any questions or concerns If you have any questions or concerns please do not hesitate to contact me. The office is [phone]. This note is constructed using voice recognition software. While every effort has been made to ensure accuracy accounts receivable analyst errors may have been included. Yours sincerely, CATALINA Kenney Coding Level of Care Code Est Pt Level 3 (96685) Diagnoses Interstitial cystitis N30.10 CPT Codes Post Residual Void - PVR CPT Code: 82562-Latd Void Residual by ultrasound ([id number])
== END 2023-08-14 09:32 | disposition home or self-care (01) ==
PROVIDERS: PCP Pediatrics; Visit Provider Nurse Practitioner Family
DX: N30.10 Interstitial cystitis (chronic) without hematuria (principal); Z13.9 Encounter for screening, unspecified
CPT/HCPCS: 99213

== ENCOUNTER 2024-01-02 09:01 | Outpatient (AMB) | payer BC, SELFPAY ==
--- NOTE | 2024-01-02 09:10 | MHC.OFFVIS ---
Vital Signs 01/02/24 09:14 Height 4 ft 10 in Weight 162 lb BMI 33.9 BP 121/74 Blood Pressure Location Rt brachial Position Sitting Pulse 82 Pulse Source Pulse Oximeter Pulse Oximetry (%) 99 Oxygen Delivery Method Room Air Intake Visit Reasons: Checkup for med refill Intake Note: Pain today 07/25 Chromosomal Disorders Counselor Required: No Accompanied by: Self / Same As Patient Allergies levofloxacin [From LEVAQUIN] Allergy (Intermediate, Verified 01/02/24 09:15) redness and itchiness latex [LATEX] Allergy (Unknown, Verified 01/02/24 09:15) RASH HPI Comments Details: Patient presents today for follow-up for medication review. She was initially seen in our office last year in December and was prescribed duloxetine. Patient reports good tolerance with medication and significant improvement in her fibromyalgia and low back pain. She denies any significant knee pain today. Patient reports increased mobility, improved daily activities and functioning and better sleep with duloxetine. She is interested to trial twice a day dose. Denies any recent cough, cold, infection, fever, any significant changes in her medical history, medications or recent hospitalizations. PRIOR: Patient is a pleasant 47 years old female with history of fibromyalgia, chronic pain syndrome, cervicalgia, fatigue presents today for initial evaluation for lower back pain. Denies any past or recent trauma, injury or falls. Back pain is mostly axial with occasional radiation to her lateral hip and thigh but not below knee level. Reports chronic bilateral knee pain, worse with climbing stairs. Patient also presents with widespread body pain consistent with fibromyalgia. Neck pain has been minimal in the past few weeks. Denies previous spine surgery or injections. Every movement, any activity or weather changes increase her back pain. Pain affects her daily activities, functioning, sleep, social activities, mood and quality of life. Denies any fever, abdominal or groin pain, weakness, gait instability or imbalance, bladder or bowel dysfunction, or saddle anesthesia. Location Lower back, bilateral knee pain Duration Chronic pain for many years Characteristics of symptom or complaint Aching, burning, tingling, dull, numbness, tiring Aggravating or associated factors Movements, walking, sitting, climbing stairs, weather changes Relieving factors Rest, laying down, Tylenol, Marijuana (dispensary), methocarbamol Treatment PT, chiropractic therapy- 3 years ago, no improvement [facility] Medical History Diverticulitis Crohn disease Interstitial cystitis Bipolar 2 disorder Anxiety Depression Surgical History S/P ureteral stent placement History of tubal ligation Social History Household Members: Spouse and Family Housing: House Alcohol intake: never Patient Tobacco Use Status: Never used Tobacco e-Cigarette/Vaping Use: Currently Using Second Hand Smoke Exposure: No service: No 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 Alert and oriented. Mood and affect appropriate. Follows and participates in conversation appropriately. Respiratory effort is unlabored. No cough. Able to transition from sit to stand unassisted. Ambulates with bilaterally normal heel strike and toe off. Back/Spine/Pelvis Other: Limited lumbar ROM due to pain. Facet loading test positive bilaterally. Multiple tender 16/16 TTP points upper and lower extremities. Cervical Spine: cervical ROM normal, cervical muscular tenderness and No Cervical spine tenderness Thoracic/Lumbar Spine: thoracic and lumbar spine normal to inspection, No Thoracic/lumbar spine scar(s), Lasegue's sign negative, straight leg raise negative bilaterally, pain with thoraco-lumbar ROM, paraspinal muscle tenderness, No thoracic spinal tenderness and lumbar spinal tenderness at L4 and at L5 Sacroiliac joints: bilaterally tender to palpation Results Reviewed Results Reviewed: CERVICAL SPINE 3 VIEWS 12/19/22 CLINICAL INFORMATION: Cervicalgia. FINDINGS: Vertebral body heights and alignment are normal. The disc spaces are well-maintained. No acute fracture or spondylolisthesis is seen. There is very mild anterior spondylosis at C6-C7. The posterior elements are intact. The neural foramina appear patent on the oblique views, with some over rotation on the right oblique view. There is no prevertebral soft tissue swelling. The dens and C7-T1 interface are normal. IMPRESSION: 1. No acute fracture or spondylolisthesis is seen. 2. The cervical disc spaces are well-maintained. 3. There is very mild anterior spondylosis at C6-C7. 4. The bilateral neural foramina appear patent. XR LUMBOSACRAL SPINE 12/19/22 CLINICAL INFORMATION: Radiculopathy. FINDINGS: The vertebral bodies and posterior elements are normal. The disc spaces are preserved and the vertebral alignment is normal. There is multi-level mild lower thoracic spondylosis. The paraspinal soft tissues are normal. IMPRESSION: 1. Unremarkable radiographic appearance of the lumbar spine. 2. There is multi-level mild lower thoracic spondylosis. Assessment & Plan Assessment & Plan (1) Low back pain: Code(s): M54.50 - Low back pain, unspecified Category: Medical (2) Bilateral knee pain: Code(s): M25.561 - Pain in right knee; M25.562 - Pain in left knee Category: Medical (3) Chronic pain syndrome: Code(s): G89.4 - Chronic pain syndrome Category: Medical (4) Cervicalgia: Code(s): M54.2 - Cervicalgia Category: Medical Plan Refill provided for duloxetine with increased dose to 30 mg BID. Patient will continue to monitor for any side effects. Precautions and potential COFFEE SUPERVISOR depression effects if taken with simultaneously with amitriptyline and zolpidem discussed with patient . Patient will take medications 2-4 hours apart. Patient is aware this medication can make her drowsy, advised not to drink alcohol or drive after taking it. All questions and concerns have been answered and patient agreed with the treatment plan. Follow-up as needed. Medications: Changed From duloxetine 30 mg PO DAILY PRN 30 caps 3RF for pain G89.4 - Chronic pain syndrome, M25.561 - Pain in right knee, M25.562 - Pain in left knee, M54.50 - Low back pain, unspecified, M79.7 - Fibromyalgia To duloxetine 30 mg PO DAILY 30 days PRN 60 caps 6RF for pain G89.4 - Chronic pain syndrome, M25.561 - Pain in right knee, M25.562 - Pain in left knee, M54.50 - Low back pain, unspecified, M79.7 - Fibromyalgia Coding Level of Care Code Est Pt Level 4 (78579) Complex EM visit Add On G2211 Diagnoses Low back pain M54.50 Bilateral knee pain M25.561; M25.562 Chronic pain syndrome G89.4 Cervicalgia M54.2
[2024-01-02 09:14] VITALS: BP 121/74; PULSE 82; O2SAT 99; BMI 33.9
== END 2024-01-02 09:21 | disposition home or self-care (01) ==
PROVIDERS: PCP Pediatrics; Visit Provider Nurse Practitioner Family
DX: M54.50 Low back pain, unspecified (principal); M25.561 Pain in right knee; M25.562 Pain in left knee; G89.4 Chronic pain syndrome; M54.2 Cervicalgia
CPT/HCPCS: 99214

== ENCOUNTER → 2024-01-02 09:01 | Outpatient (BNVA) | payer BC, SELFPAY | PROVIDERS: PCP Pediatrics; Visit Provider Nurse Practitioner Family ==

== ENCOUNTER 2024-03-25 08:36 | Outpatient (AMB) | payer BC, SELFPAY ==
--- NOTE | 2024-03-25 08:39 | A.OFFVIS_ITS ---
Intake Visit Reasons: 6m/PVR Intake Note: Patient presents for follow up interstitial cystitis Urology Medications: tadalafil Blood Thinner: none PVR: 142ml's Extrusion Supervisor Required: No Accompanied by: Self / Same As Patient Allergies levofloxacin [From LEVAQUIN] Allergy (Intermediate, Verified 03/25/24 09:02) redness and itchiness latex [LATEX] Allergy (Unknown, Verified 03/25/24 09:02) RASH Medication List - Last Reconciled 03/25/24 by ANDREAS KenneyP- amitriptyline 50 mg PO BEDTIME duloxetine 30 mg PO DAILY PRN 30 days hyoscyamine sulfate 0.125 mg sublingual DAILY PRN levonorgestrel (Mirena) 1 device intrauterine ONCE lidocaine 5% 2 patches topical DAILY 30 days oxcarbazepine 300 mg PO BID tadalafil 5 mg PO DAILY 90 days zolpidem 10 mg PO BEDTIME PRN HPI Comments Details: Joycelyn is a very pleasant 48-year-old female patient of Dr. Jimenez. She presents to the office today for follow-up of her interstitial cystitis. She has a past medical history of Raynaud phenomenon, anxiety, bipolar 2 disorder, Crohn's disease, depression, diverticulitis, interstitial cystitis, IBS, and fibromyalgia. When asked she reports to be doing and feeling well. She reports compliance with 5 mg of Cialis daily for bladder stability. She reports this has been extremely helpful in managing symptoms of her interstitial cystitis. She currently denies any bothersome urinary issues or concerns. In office urinalysis results reviewed with the patient today. PVR 142ml's. She continues with discussed pelvic floor exercises. Of note, patient is status post cysto hydrodistention with Dr. Anthony Hall 10/07. When asked she reports to be happy with her current voiding parameters. She continues with FODMAP diet. Discussed and stressed the importance of drinking plenty of water daily. When asked patient denies incontinence, hematuria, dysuria, foul-smelling urine, changes to urinary stream, flank pain, fever, and or chills. She otherwise offers no other issues or concerns at this time. 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 [employer] Gender identity: Female Vision needs: Yes (glasses) Female Reproductive History Menstrual Age of Menarche: 10 Review of Systems Const Reports as per HPI Eyes Reports no additional complaints ENT Reports no additional complaints Card Reports no additional complaints Resp Reports no additional complaints GI Reports as per HPI Reports as per HPI Musc Reports as per HPI Neuro Reports as per HPI Psych Reports as per HPI Endo Reports no additional complaints Physical Exam Const General: cooperative, healthy appearing, comfortable, no acute distress, well developed, alert and awake Orientation/consciousness: patient oriented x3 Limitations: no limitations HEENT Head: Yes normal to inspection, Yes normocephalic and Yes atraumatic Ears: hearing grossly normal bilaterally Eyes General: appearance normal, both eyes and all related structures Neck Neck: Yes normal visual inspection and Yes trachea midline Chest Chest palpation & inspection: normal inspection of the chest Resp Effort & Inspection: normal respiratory effort and able to speak in complete sentences Cardio Rate: regular rate GI Inspection: Yes normal to inspection General: Yes no CVA tenderness Back/Spine/Pelvis Back: no CVA tenderness Skin General skin exam: no rashes or lesions noted Neuro General: patient oriented x3 Extrem General: Yes normal to inspection Psych Appearance: grossly normal and well kempt Mental Status: mental status grossly normal Speech and movement: Normal speech and movement present and Clear speech present Affect: normal affect Attitude: cooperative Thought process: Normal thought process present Thought content: Normal thought content present Insight: Fair insight present (Psych) Judgement: Fair judgement present (Psych) Office Procedures Post Void Residual Post Residual Void Post Void Residual (PVR): 142 [id number] Void Residual by ultrasound Results AMB Urinalysis, Automated UA Leukoctes 0 Sally/uL Last Edit by Priscilla Barker on 03/25/24 08:55 UA Nitrite Last Edit by Priscilla Barker on 03/25/24 08:55 UA Urobilinogen 0.2 mg/dL Last Edit by Priscilla Barker on 03/25/24 08:55 UA Protein 0 mg/dL Last Edit by Priscilla Barker on 03/25/24 08:55 UA pH 6.0 Last Edit by Priscilla Barker on 03/25/24 08:55 UA Blood 0 Will/uL Last Edit by Priscilla Barker on 03/25/24 08:55 UA Specific [place] 1.020 Last Edit by Priscilla Barker on 03/25/24 08:55 UA Ketone Last Edit by Priscilla Barker on 03/25/24 08:55 UA Bilirubin 0 mg/dL Last Edit by Priscilla Barker on 03/25/24 08:55 UA Glucose 0 mg/dL Last Edit by Priscilla Barker on 03/25/24 08:55 Assessment & Plan Assessment & Plan (1) Interstitial cystitis: Code(s): N30.10 - Interstitial cystitis (chronic) without hematuria Category: Medical Plan In office urinalysis results reviewed with the patient today; as noted above. PVR 142 mL. Continue Cialis 5 mg daily. Patient reports be happy with current voiding parameters. Patient denies any bothersome urinary issues or concerns at this time. Discussed attempting to double void. Discussed bladder triggers/irritants. Continue pelvic floor exercises. Discussed possible near future Gemtesa if symptoms arise. Follow-up in 6 months with PVR; or sooner with any issues, concerns, and or questions. Orders: Orders AMB Post Void Residual by ultrasound Today N30.10 - Interstitial cystitis (chronic) without hematuria AMB Urinalysis Automated Today Z13.9 - Encounter for screening, unspecified Patient Instructions: The patient had an opportunity to ask questions regarding the treatment plan. All questions were answered. Physical exam, labs, and imaging were discussed and reviewed in detail. As well as risks, benefits, and discussion of treatment choices. No major barriers to understanding were identified. The patient expressed understanding and agreement with the above treatment plan. The patient was made aware they should contact our office by phone for worsening of their current condition, the appearance of new symptoms, or with any questions or concerns. Compliance is encouraged with any medications and follow up testing that is ordered. It is a privilege to be allowed the opportunity to participate in? your urological care.? Again, if you have any questions or concerns If you have any questions or concerns please do not hesitate to contact me. The office is [phone]. This note is constructed using voice recognition software. While every effort has been made to ensure accuracy plant cytologist errors may have been included. Yours sincerely, CATALINA Kenney Coding Level of Care Code Est Pt Level 3 (36647) Diagnoses Interstitial cystitis N30.10 CPT Codes Post Residual Void - PVR CPT Code: 62427-Cgjs Void Residual by ultrasound ([id number])
--- OUTSIDE RECORDS SUMMARY | 2024-03-25 08:40 | XMS_ITS | Data Portability ---
Author Organization KALLI otoole [address] Address [address] [place] [address] Assessment No assessment recorded. Plan of Treatment Reminders Order Date Submit Date Provider Last Modified By Organization Details Last Modified Time Details Appointments None recorded. Lab rapid flu (A+B) 2022 023 [email or web address] 247 [facility], [address] [place] [address], [phone], 15:39:57 Referral None recorded. Procedures None recorded. Surgeries None recorded. Imaging None recorded. Medication Orders benzonatate 200 mg capsule 2022 023 [email or web address] 247 [facility]/Pharmacy #[id number], [address] [place], [address], 16:30:55 Patient TargetsNo targets recorded. Patient InstructionsNo instructions recorded. Reason for Referral None Reported. Results Created Date Observation Date Name Description Value Unit Range Abnormal Flag Note LastModifiedBy Organization Detail LastModifiedTime 05/26/1905/25/2022 rapid flu (A+B) Unknown Analyte Normal = Negati ve Not Available [facility] [address] [place] [address], [phone], 05/25/2022 14:35:36 05/26/19 23 05/25/2022 rapid flu (A+B) Unknown Analyte Normal = Negati ve Not Available [facility] [address] [place] [address], [phone], 05/25/2022 14:35:36 05/26/19 23 05/25/2022 rapid flu (A+B) Unknown Analyte negati ve Not Available [address] [address] [place], [address], 05/25/2022 14:35:36 05/26/19 23 05/25/2022 rapid flu (A+B) Unknown Analyte negati ve Not Available [address], [address], 05/25/2022 14:35:36 Result Notes None recorded. Problems Name Problem SNOMED Code Status Onset Date Resolution Date Notes Provider Name and Address Organization Details Recorded Time Fibromyalgia 960976725 Active 2022 IRIS COUVERTIE R null, PA - [facility] 3 14:33:24 Anxiety 66993665 Active 2022 IRIS COUVERTIE R null, PA - [facility] 3 14:33:53 Insomnia 927497610 Active 2022 IRIS COUVERTIE R null, PA - [facility] 3 14:34:00 Problem Notes None recorded. Medical Equipment None Reported. Medications Name Sig Start Date Stop Date Status Note LastModified by Organization Details LastModified Time benzonatate 200 mg capsule Take 1 capsule 3 times a day by oral route for 10 days. 2022 active Not Available Not Available Not Avai lable meloxicam 15 mg tablet TAKE 1 TABLET BY MOUTH EVERY DAY active Not Available Not Available No t Available ondansetron HCl 4 mg tablet TAKE 1 TABLET BY MOUTH EVERY 8 HOURS NEEDED FOR NAUSEA FOR UP TO 180 DAYS. USE SPARINGLY . 05/25 completed Not Available Not Available Not Available Elmiron 100 mg capsule TAKE 2 CAPSULES BY MOUTH TWICE A DAY active Not Available Not Available No t Available oxcarbazepi ne 300 mg tablet TAKE 1 TABLET BY MOUTH TWICE A DAY DIRECTED active Not Available Not Available No t Available amitriptyli ne 50 mg tablet TAKE 2 TABLETS BY MOUTH AT BEDTIME active Not Available Not Available No t Available methocarbam ol 750 mg tablet TAKE 1 TABLET BY MOUTH THREE TIMES A DAY active Not Available Not Available No t Available hyoscyamine 0.125 mg sublingual tablet TAKE 1 TABLET BY MOUTH 4 TIMES DAILY NEEDED FOR CRAMPING FOR UP TO 360 DAYS. active Not Available Not Available No t Available zolpidem 10 mg tablet TAKE 1 TABLET BY MOUTH EVERYDAY AT BEDTIME active Not Available Not Available No t Available ondansetron 4 mg disintegrat ing tablet DISSOLVE 1 TABLET BY MOUTH EVERY 6 HOURS NEEDED FOR NAUSEA AND VOMITING 05/25 completed Not Available Not Available Not Available loratadine 10 mg tablet TAKE 1 TABLET BY MOUTH EVERY DAY active Not Available Not Available No t Available nabumetone 500 mg tablet TAKE 1 TABLET BY MOUTH TWICE A DAY active Not Available Not Available No t Available Vitals Date Recorded Body height Body mass index (BMI) Body weight Body temperature Respiratory rate Oxygen saturation Oxygen saturation in Arterial blood by Pulse oximetry Heart rate Systolic blood pressure Diastolic blood pressure Provider Name and Address Organization Details Last Updated DateTime 152.4 cm 32 kg/m2 18591.1 5 g 97.8 [degF] 18 /min 97 % 97 % 82 /min 112 mm[Hg] 77 mm[Hg] MACK Perez PA - [employer] [facility] 14:37:01 Social History Question Answer Notes LastModified by AppBrickizat ion Details LastModified Time Tobacco Smoking Status Former Smoker MACK mcdonald PA - [facility] 05/25/2022 14:34:41 What Is Your Level Of Alcohol Consumption? Occasional Information not available 05/25/2022 What Is Your Water Source? City Information not available 05/25/2022 What Is Your Heat Source? Other Information not available 05/25/2022 Have You Had Direct Contact, Or Contact During Intimacy, With Monkeypox Rash, Scabs, Or Body Fluids From A Person With Monkeypox? No Information not available 05/25/2022 Do You Use Any Illicit Or Recreational Drugs? No Information not available 05/25/2022 Have You Recently Traveled Abroad? No Information not available 05/25/2022 Do You Or Have You Ever Used Any Other Forms Of Tobacco Or Nicotine? No Information not available 05/25/2022 Sex: Unknown Functional Status None recorded. Mental Status None recorded. Family History Relationship Description Onset Age of this Age Resolved Age Notes LastModified by Organization Details LastModified Time Father No current problems or disability Not available 14:34:33 Mother No current problems or disability Not available 14:34:33 Medical History No medical history recorded. Gynecological HistoryNo gynecological history recorded. Obstetrics History GPAL:G 0 P 0 0 0 0 Past Encounters Encounter ID Performer Location Encounter Start Date Encounter Closed Date Diagnosis/Indication Diagnosis SNOMED-CT Code Diagnosis ICD10 Code Diagnosis Note [id number] [facility] [address] [place] [address] 11/21/2019 10:50:08 11/21/2019 12:03:56 [id number] ADRY ROTH MD [facility] [address] [place] [address] 05/25/2022 12:25:18 05/25/2022 16:10:51 Viral syndrome 458526258 B34.9 CoughBlack Elderberry Syrup:1-2 tsp 2-3 times a day for 5 days as needed for coughing.S ambucol Black Elderberry Original Syrup (available at [employer] )[employer] Black Elderberry Syrup, 5.4-Ounce Bottle (available at [employer] or [email or web address]) Use a cool mist humidifier in the room that you sleep to add moisture to the air, which should soothe the airways and help loosen any mucus that may be present. Energy SupportB- Complex 50 (B-Vitamin s)take 1 a day to boost energy and help manage stress. Hydration: Balance out your water consumptio n by adding some electrolyt e solutions as discussed. Postviral cough 83483804 4 R05.3 Health Concerns Section Related Observation LastModified by Organization Detai ls LastModified Time None Recorded Concern Status LastModified by Organization Details LastModified Time None Recorded Advance Directives Directive None Recorded Payers Encounter Date Sequence Insurance Name Policy Number Policy Pedroza Covered Member ID Pedroza Member ID Guarantor Name 11/21/2019 1 [place] [id number] Karlo Kramer [id number] Joycelyn Kramer 05/25/2022 1 [place] [facility] (PPO) [id number] Karlo Caldwellgo [id number] Joycelyncarlos a Kramer Notes Date Note Type Note Provider Name and Address Organization Details Recorded Time 05/25/2022 text/html congestion, cough, chills, x 6 days. Afebrile. Very tired. HX of Asthma. She doesn't feel like this is an Asthma episode. No N/V/D/rash o rother symptoms. Covid negative. ADRY ROTH MD [address] [place], [address], PA - [facility] 06/11/2022 19:32:15 OBGyn Episode No OBEpisode recorded.
== END 2024-03-25 09:04 | disposition home or self-care (01) ==
PROVIDERS: PCP Pediatrics; Visit Provider Nurse Practitioner Family
DX: Z13.9 Encounter for screening, unspecified (principal); N30.10 Interstitial cystitis (chronic) without hematuria
CPT/HCPCS: 99213

== ENCOUNTER → 2024-03-25 08:36 | Outpatient (BNVA) | payer BC, SELFPAY | PROVIDERS: PCP Pediatrics; Visit Provider Nurse Practitioner Family | DX: N30.10 Interstitial cystitis (chronic) without hematuria (principal); Z79.899 Other long term (current) drug therapy | CPT/HCPCS: 51798; 81003 ==

== ENCOUNTER 2024-07-20 09:07 | Outpatient (AMB) | payer BC, SELFPAY ==
--- NOTE | 2024-07-20 09:09 | A.OFFVIS_ITS ---
Vital Signs 07/20/24 09:19 Height 4 ft 10 in Weight 165 lb 2 oz BMI 34.5 BP 128/77 Blood Pressure Location Lt brachial Position Sitting Pulse 82 Pulse Source Pulse Oximeter Pulse Oximetry (%) 98 Oxygen Delivery Method Room Air Intake Visit Reasons: Consultation and follow up Intake Note: Pain today 09/24 Bobbin Presser Required: No Accompanied by: Self / Same As Patient Allergies levofloxacin [From LEVAQUIN] Allergy (Intermediate, Verified 07/20/24 09:20) redness and itchiness latex [LATEX] Allergy (Unknown, Verified 07/20/24 09:20) RASH HPI Comments Details: The patient is a 49-year-old female presenting with challenges in managing her chronic pain amidst multiple diagnoses. She was last seen in our office in December 2023 for duloxetine refill. Her history indicates a significant and persistent fibromyalgia with concurrent chronic lower back pain, which she suggests is not limited to fibromyalgia alone. Recurring pain affects her lower back, hips, and shoulders; numbness noted in the arms persists for over a month. Diagnosed conditions include interstitial cystitis, IBS, Crohn's disease, depression and anxiety. She utilizes duloxetine for fibromyalgia along with amitriptyline, noticing relief with no adverse effects, and is open to increasing duloxetine dosage as previously discussed. 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 Overhead, imaging reveals unremarkable spinal conditions from her past CT scan and normal lumbar and knee x-rays. Patient is inclined towards more non-pharmacological interventions for her pain management journey. - Onset: Chronic wide spread body pain; aching and numbness in the arms for about a month. - Quality: Constant pain in the lower back, hips, and shoulders; numbness starting from elbow to fingers, left>right. - Location: Lower back, hips, shoulders, arms. - Radiation: Numbness from elbow to fingers. - Exacerbating factors: Bending, twisting, physical activities at work. - Relieving factors: Duloxetine provides some relief; pressure applied during certain movements eases tension. - Interference with activities: Bending, twisting exacerbates pain; affects daily work duties which are primarily physically demanding. - Affect: Pain provokes concern, feeling that diagnosis is insufficient for totality of pain. - Analgesia: Currently taking duloxetine without side effects; poised to increase the dosage. - Adverse Effects: Reports no adverse effects from current medication regimen. - Activities of Daily Living: Pain impacts work life, reducing overall physical activity outside of duty; expresses need for relief. - Aberrant Drug Related Behaviors: None reported; history of proper medication adherence. PRIOR 01/02/24: Patient presents today for follow-up for medication review. She was initially seen in our office last year in December and was prescribed duloxetine. Patient reports good tolerance with medication and significant improvement in her fibromyalgia and low back pain. She denies any significant knee pain today. Patient reports increased mobility, improved daily activities and functioning and better sleep with duloxetine. She is interested to trial twice a day dose. Denies any recent cough, cold, infection, fever, any significant changes in her medical history, medications or recent hospitalizations. PRIOR: Patient is a pleasant 47 years old female with history of fibromyalgia, chronic pain syndrome, cervicalgia, fatigue presents today for initial evaluation for lower back pain. Denies any past or recent trauma, injury or falls. Back pain is mostly axial with occasional radiation to her lateral hip and thigh but not below knee level. Reports chronic bilateral knee pain, worse with climbing stairs. Patient also presents with widespread body pain consistent with fibromyalgia. Neck pain has been minimal in the past few weeks. Denies previous spine surgery or injections. Every movement, any activity or weather changes increase her back pain. Pain affects her daily activities, functioning, sleep, social activities, mood and quality of life. Denies any fever, abdominal or groin pain, weakness, gait instability or imbalance, bladder or bowel dysfunction, or saddle anesthesia. Location Lower back, bilateral knee pain Duration Chronic pain for many years Characteristics of symptom or complaint Aching, burning, tingling, dull, numbness, tiring Aggravating or associated factors Movements, walking, sitting, climbing stairs, weather changes Relieving factors Rest, laying down, Tylenol, Marijuana (dispensary), methocarbamol Treatment PT, chiropractic therapy- 3 years ago, no improvement [facility] Medical History Diverticulitis Crohn disease Interstitial cystitis Bipolar 2 disorder Anxiety Depression Surgical History S/P ureteral stent placement History of tubal ligation Social History Household Members: Spouse and Family Housing: House Alcohol intake: never Patient Tobacco Use Status: Never used Tobacco e-Cigarette/Vaping Use: Currently Using Second Hand Smoke Exposure: No service: No 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 - Gastrointestinal: Reports IBS, Crohn's disease; denies current digestive issues - Genitourinary: Reports interstitial cystitis. - Neurological: Denies bipolar disorder; reports anxiety and numbness in arms. - Reproductive/Endocrine: Reports postmenopausal symptoms with occasional sweats. - Psychiatric: Reports anxiety and depression. All systems reviewed & are unremarkable except as noted in HPI and below Physical Exam Vital Signs: Last Vital Signs Pulse 82 07/20/24 09:19 BP 128/77 07/20/24 09:19 Pulse Ox 98 07/20/24 09:19 Oxygen Delivery Method Room Air 07/20/24 09:19 BMI result Body Mass Index 34.5 General: Appears afebrile. Alert and oriented. Mood and affect appropriate. Follows and participates in conversation appropriately. Respiratory effort is unlabored. No cough. Able to transition from sit to stand unassisted. Ambulates with bilaterally normal heel strike and toe off. General: Yes no CVA tenderness Back/Spine/Pelvis Other: Limited lumbar extension due to pain, lumbar flexion is intact and does not reproduce pain but mild stiffness. Facet loading test positive bilaterally. Multiple tender 16/16 TTP points upper and lower extremities. Back: no CVA tenderness Cervical Spine: cervical ROM normal, cervical muscular tenderness and No Cervical spine tenderness Thoracic/Lumbar Spine: thoracic and lumbar spine normal to inspection, No Thoracic/lumbar spine scar(s), Lasegue's sign negative, straight leg raise negative bilaterally, pain with thoraco-lumbar ROM (extension), paraspinal muscle tenderness, No thoracic spinal tenderness and lumbar spinal tenderness at L4 and at L5 Sacroiliac joints: bilaterally tender to palpation Extrem General: Yes capillary refill normal, Yes no clubbing, cyanosis or edema and Yes no calf tenderness Results Reviewed Results Reviewed: CERVICAL SPINE 3 VIEWS 12/19/22 CLINICAL INFORMATION: Cervicalgia. FINDINGS: Vertebral body heights and alignment are normal. The disc spaces are well-maintained. No acute fracture or spondylolisthesis is seen. There is very mild anterior spondylosis at C6-C7. The posterior elements are intact. The neural foramina appear patent on the oblique views, with some over rotation on the right oblique view. There is no prevertebral soft tissue swelling. The dens and C7-T1 interface are normal. IMPRESSION: 1. No acute fracture or spondylolisthesis is seen. 2. The cervical disc spaces are well-maintained. 3. There is very mild anterior spondylosis at C6-C7. 4. The bilateral neural foramina appear patent. XR LUMBOSACRAL SPINE 12/19/22 CLINICAL INFORMATION: Radiculopathy. FINDINGS: The vertebral bodies and posterior elements are normal. The disc spaces are preserved and the vertebral alignment is normal. There is multi-level mild lower thoracic spondylosis. The paraspinal soft tissues are normal. IMPRESSION: 1. Unremarkable radiographic appearance of the lumbar spine. 2. There is multi-level mild lower thoracic spondylosis. XR KNEE, RIGHT 12/25/22 FINDINGS: No fracture or joint effusion appreciated. Alignment is anatomic. Joint spaces appear maintained. No abnormal soft tissue calcification. IMPRESSION: Unremarkable plain film examination of the right knee. XR KNEE, LEFT 12/25/22 FINDINGS: Right distal femoral and bone islands. No fracture or joint effusion appreciated. Alignment is anatomic. Joint spaces appear maintained. No abnormal soft tissue calcification. IMPRESSION: Unremarkable plain film examination of the left knee. Assessment & Plan Assessment & Plan (1) Low back pain: Code(s): M54.50 - Low back pain, unspecified Category: Medical (2) Bilateral hip pain: Code(s): M25.551 - Pain in right hip; M25.552 - Pain in left hip Category: Medical (3) Low back pain: Code(s): M54.50 - Low back pain, unspecified Category: Medical (4) Bilateral hip pain: Code(s): M25.551 - Pain in right hip; M25.552 - Pain in left hip Category: Medical (5) Cervicalgia: Code(s): M54.2 - Cervicalgia Category: Medical (6) Bilateral knee pain: Code(s): M25.561 - Pain in right knee; M25.562 - Pain in left knee Category: Medical (7) Fibromyalgia: Code(s): M79.7 - Fibromyalgia Category: Medical Plan I will increase the patient's duloxetine dosage to twice daily to improve pain management, monitoring her response closely to adjust treatment as necessary based on effectiveness and tolerance. Patient is also will be restarting physical therapy to enhance her function and offer relief, particularly targeting lower back mechanics. Furthermore, we will obtain back and hip X-rays to evaluate any structural issues contributing to her pain. 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 Discussed fibromyalgia along with additional resources such as cognitive behavioral therapy aligns with integrated care pathways to manage her chronic condition holistically. All questions and concerns have been answered and patient agreed with the treatment plan. Follow up for xray results/after PT and sooner as needed. Patient was informed and verbally consented to the use of an ambient scribe for clinic note documentation during this visit. Orders: Orders XR lumbar spine 4V min Today M54.50 - Low back pain, unspecified PT Evaluation and Treatment Today M25.551 - Pain in right hip, M25.552 - Pain in left hip, M25.561 - Pain in right knee, M25.562 - Pain in left knee, M54.2 - Cervicalgia, M54.50 - Low back pain, unspecified XR hip BI w PEL1V Today M25.551 - Pain in right hip, M25.552 - Pain in left hip Medications: Changed From duloxetine 30 mg PO DAILY 30 days PRN 30 caps 3RF for pain G89.4 - Chronic pain syndrome, M54.50 - Low back pain, unspecified, M79.7 - Fibromyalgia To duloxetine 30 mg PO BID 30 days 30 caps 0RF for pain G89.4 - Chronic pain syndrome, M54.50 - Low back pain, unspecified, M79.7 - Fibromyalgia Patient Instructions: - Take duloxetine 30 mg twice daily as prescribed. Monitor for any side effects. - Start physical therapy sessions as written and discuss scheduling that fits with work. - Get a back and hip X-rays for updated assessment. - Discuss menopausal symptoms with your primary care. - Consider cognitive behavioral therapy oz as suggested. - Follow up on any changes in pain or symptoms during your next visit. Coding Level of Care Code Est Pt Level 4 (82950) Complex EM visit Add On G2211 Diagnoses Low back pain M54.50 Bilateral hip pain M25.551; M25.552 Cervicalgia M54.2 Bilateral knee pain M25.561; M25.562 Fibromyalgia M79.7
[2024-07-20 09:19] VITALS: BP 128/77; PULSE 82; O2SAT 98; BMI 34.5
--- OUTSIDE RECORDS SUMMARY | 2024-07-20 09:44 | XMS_ITS | Data Portability ---
Author Organization KALLI [address]toole [address] Address [address] [place] [address] Assessment No assessment recorded. Plan of Treatment Reminders Order Date Submit Date Provider Last Modified By Organization Details Last Modified Time Details Appointments None recorded. Lab rapid flu (A+B) 2022 023 [email or web address] 247 [facility], [address] [place] [address], [phone], 15:39:57 Referral None recorded. Procedures None recorded. Surgeries None recorded. Imaging None recorded. Medication Orders benzonatate 200 mg capsule 2022 023 [email or web address] 247 [facility]/Pharmacy #[id number], [address] [place], [address], 16:30:55 Patient TargetsNo targets recorded. Patient InstructionsNo instructions recorded. Reason for Referral None Reported. Results Created Date Observation Date Name Description Value Unit Range Abnormal Flag Note LastModifiedBy Organization Detail LastModifiedTime 05/26/1905/25/2022 rapid flu (A+B) Unknown Analyte Normal = Negati ve Not Available [facility] [address] [place] [address], [phone], 05/25/2022 14:35:36 05/26/19 23 05/25/2022 rapid flu (A+B) Unknown Analyte Normal = Negati ve Not Available [facility] [address] [place] [address], [phone], 05/25/2022 14:35:36 05/26/19 23 05/25/2022 rapid flu (A+B) Unknown Analyte negati ve Not Available [address] [address] [place], [address], 05/25/2022 14:35:36 05/26/19 23 05/25/2022 rapid flu (A+B) Unknown Analyte negati ve Not Available [address], [address], 05/25/2022 14:35:36 Result Notes None recorded. Problems Name Problem SNOMED Code Status Onset Date Resolution Date Notes Provider Name and Address Organization Details Recorded Time Fibromyalgia 573021374 Active 2022 IRIS COUVERTIE R null, PA - [facility] 3 14:33:24 Anxiety 34433280 Active 2022 IRIS COUVERTIE R null, PA - [facility] 3 14:33:53 Insomnia 898397361 Active 2022 IRIS COUVERTIE R null, PA [...] Last Updated DateTime 152.4 cm 32 kg/m2 90971.1 5 g 97.8 [degF] 18 /min 97 % 97 % 82 /min 112 mm[Hg] 77 mm[Hg] MACK Perez PA - [employer] [facility] 14:37:01 Social History Question Answer Notes LastModified by Imprivataizat ion Details LastModified Time Tobacco Smoking Status [...] SNOMED-CT Code Diagnosis ICD10 Code Diagnosis Note [id number] [facility] [address] [place] [address] 11/21/2019 10:50:08 11/21/2019 12:03:56 [id number] ADRY ROTH MD [facility] [address] [place] [address] 05/25/2022 12:25:18 05/25/2022 16:10:51 Viral syndrome 829091788 B34.9 CoughBlack Elderberry Syrup:1-2 tsp 2-3 times a day for 5 days as needed for coughing.S ambucol Black Elderberry Original Syrup (available at [employer] )[employer] Black Elderberry Syrup, 5.4-Ounce Bottle (available at [employer] or [employer]) Use a cool mist humidifier in the [...] electrolyt e solutions as discussed. Postviral cough 87786451 4 R05.3 Health Concerns Section Related Observation LastModified by Organization Detai ls LastModified Time None Recorded Concern Status LastModified by Organization Details LastModified Time None Recorded Advance Directives Directive None Recorded Payers Encounter Date Sequence Insurance Name Policy Number Policy Pedroza Covered Member ID Pedroza Member ID Guarantor Name 11/21/2019 1 [employer]: [employer]BARA (PPO) [id number] Karlo Kramer [id number] Joycelyn Caldwellgo 05/25/2022 1 [place] [id number] Karlo Kramer [id number] Joycelyn Kramer Notes Date Note Type Note Provider Name and Address Organization Details Recorded Time 05/25/2022 text/html congestion, cough, chills, x 6 days. Afebrile. Very tired. HX of Asthma. She doesn't feel like this is an Asthma episode. No N/V/D/rash o rother symptoms. Covid negative. ADRY ROTH MD [address] [place], [address], [place] - [facility] 06/11/2022 19:32:15 OBGyn Episode No OBEpisode recorded.
== END 2024-07-20 09:50 | disposition home or self-care (01) ==
LOC: HO.PMC 09:08
PROVIDERS: PCP Pediatrics; Visit Provider Nurse Practitioner Family
DX: M54.50 Low back pain, unspecified (principal); M25.551 Pain in right hip; M25.552 Pain in left hip; M54.2 Cervicalgia; M25.561 Pain in right knee; M25.562 Pain in left knee; M79.7 Fibromyalgia
CPT/HCPCS: 99214

== ENCOUNTER → 2024-07-20 09:07 | Outpatient (BNVA) | payer BC, SELFPAY | PROVIDERS: PCP Pediatrics; Visit Provider Nurse Practitioner Family ==

== ENCOUNTER 2024-09-02 12:19 | Outpatient (REF) | payer BC, SELFPAY ==
--- NOTE | ~2024-09-02 | XR_ITS ---
EXAMINATION: X-ray lumbar spine. CLINICAL INFORMATION: Low back pain. TECHNIQUE: AP, oblique and lateral views. COMPARISON: None FINDINGS: Mild multilevel endplate sclerosis. No acute cortical disruption or malalignment. No lytic or blastic lesions. Facet joint hypertrophy at L5-S1. T-shaped contraceptive device overlapping the mid sacrum. XR/XR lumbar spine 4V min IMPRESSION: Mild multilevel spondylosis without acute fracture or listhesis. Electronically signed by: Senthil Osborne MD 09/02/2024 01:55 PM EDT
--- NOTE | ~2024-09-02 | XR_ITS ---
EXAMINATION: XR BILATERAL HIPS WITH AP PELVIS CLINICAL INFORMATION: M25.551 - Pain in right hip COMPARISON: None available. TECHNIQUE: AP view of the pelvis and single views of each hip were obtained. FINDINGS: Bony pelvis is intact. Mild sclerosis and the sacroiliac joints. No acute cortical disruption or malalignment in either coxofemoral joint. There is preservation of the joint spaces in the hips. There is a T-shaped contraceptive device overlapping the mid sacrum. XR/XR hip BI w PEL1V IMPRESSION: No acute fracture or dislocation. Electronically signed by: Senthil Osborne MD 09/02/2024 01:54 PM EDT
--- OUTSIDE RECORDS SUMMARY | 2024-09-02 14:10 | XMS_ITS | Data Portability ---
Author Organization KALLI otoole [address] Address [address] [place] [address] Assessment No assessment recorded. Plan of Treatment Reminders Order Date Submit Date Provider Last Modified By Organization Details Last Modified Time Details Appointments None recorded. Lab rapid flu (A+B) 2022 023 [email or web address] 247 [facility], [address] [place] [address], [phone], 15:39:57 Referral None recorded. Procedures None recorded. Surgeries None recorded. Imaging None recorded. Medication Orders benzonatate 200 mg capsule 2022 023 [email or web address] 247 [facility]/Pharmacy #[id number], [address] [place], [address], 16:30:55 Patient TargetsNo targets recorded. Patient InstructionsNo instructions recorded. Reason for Referral None Reported. Results Created Date Observation Date Name Description Value Unit Range Abnormal Flag Note LastModifiedBy Organization Detail LastModifiedTime 05/26/1905/25/2022 rapid flu (A+B) Unknown Analyte Normal = Negati ve Not Available [facility] [address] [place] [address], [address], 05/25/2022 14:35:36 05/26/19 23 05/25/2022 rapid flu (A+B) Unknown Analyte Normal = Negati ve Not Available [facility] [address] [place] [address], [phone], 05/25/2022 14:35:36 05/26/19 23 05/25/2022 rapid flu (A+B) Unknown Analyte negati ve Not Available [address] [address] [place], [address], 05/25/2022 14:35:36 05/26/19 23 05/25/2022 rapid flu (A+B) Unknown Analyte negati ve Not Available [address], [address], 05/25/2022 14:35:36 Result Notes None recorded. Problems Name Problem SNOMED Code Status Onset Date Resolution Date Notes Provider Name and Address Organization Details Recorded Time Fibromyalgia 925704665 Active 2022 IRIS COUVERTIE R null, [place] - [facility] 3 14:33:24 Anxiety 03977316 Active 2022 IRIS COUVERTIE R null, PA - [facility] 3 14:33:53 Insomnia 909640874 Active 2022 IRIS COUVERTIE R null, PA [...] and Address Organization Details Last Updated DateTime 3 152.4 cm 32 kg/m2 90774.1 5 g 97.8 [degF] 18 /min 97 % 97 % 82 /min 112 mm[Hg] 77 mm[Hg] MACK Perez [employer] 14:37:01 Social History Question Answer Notes LastModified by [employer] Details LastModified Time Tobacco Smoking Status Former Smoker MAKC mcdonald [place] - [facility] 05/25/2022 14:34:41 What Is Your Water Source? City Information not available 05/25/2022 What Is Your Heat Source? Other Information not available 05/25/2022 Have You Had Direct Contact, Or Contact During Intimacy, With Monkeypox Rash, Scabs, Or Body Fluids From A Person With Monkeypox? No Information not available 05/25/2022 Have You Recently Traveled Abroad? No Information not available 05/25/2022 Sex: Unknown Functional Status Question Answer Note LastModified by [employer] Details LastModified Time Do you use any illicit or recreational drugs? No Information not available 05/25/2022 Do you or have you ever used any other forms of tobacco or nicotine? No Information not available 05/25/2022 What is your level of alcohol consumption? Occasional Information not available 05/25/2022 Mental Status None recorded. Family History Relationship [...] SNOMED-CT Code Diagnosis ICD10 Code Diagnosis Note [id number] 20995[facility] [address] [facility] [address] [place] [address] 11/21/2019 10:50:08 11/21/2019 12:03:56 [id number] ADRY ROTH MD [address] [facility] [address] [place] [address] 05/25/2022 12:25:18 05/25/2022 16:10:51 Viral syndrome 988475834 B34.9 CoughBlack Elderberry Syrup:1-2 tsp 2-3 times a day for 5 days as needed for coughing.S ambucol Black Elderberry Original Syrup (available at [employer] )[employer]ena Her[employer] Black Elderberry Syrup, 5.4-Ounce Bottle (available at [employer] or [employer]) Use a cool mist humidifier in the [...] electrolyt e solutions as discussed. Postviral cough 22762845 4 R05.3 Health Concerns Section Related Observation LastModified by Organization Detai ls LastModified Time None Recorded Concern Status LastModified by Organization Details LastModified Time None Recorded Advance Directives Directive None Recorded Payers Insurance Date Sequence Insurance Name Policy Number Policy Pedroza Covered Member ID Pedroza Member ID Guarantor Name 06/11/2022 1 JOSEMANUEL (PPO) [id number] Karlo Caldwellgo [id number] Joycelyn Williams Notes Date Note Type Note Provider Name and Address Organization Details Recorded Time 05/25/2022 text/html congestion, cough, chills, x 6 days. Afebrile. Very tired. HX of Asthma. She doesn't feel like this is an Asthma episode. No N/V/D/rash o rother symptoms. Covid negative. ADRY ROTH MD [address] [place], [address], [place] - [facility] 06/11/2022 19:32:15 OBGyn Episode No OBEpisode recorded.
== END 2024-09-02 12:20 | disposition home or self-care (01) ==
LOC: HO.XRAY 12:19
PROVIDERS: PCP Pediatrics; Visit Provider Nurse Practitioner Family
DX: M25.552 Pain in left hip (principal); M54.50 Low back pain, unspecified; M25.551 Pain in right hip
CPT/HCPCS: 72110; 73521

== ENCOUNTER → 2024-09-02 12:22 | Outpatient (BNV) | payer BC, SELFPAY | PROVIDERS: PCP Pediatrics; Visit Provider Radiology Diagnostic Radiology | DX: M54.50 Low back pain, unspecified (principal); M25.551 Pain in right hip | CPT/HCPCS: 72110; 73521 ==

== ENCOUNTER 2024-09-14 11:15 | Outpatient (AMB) | payer BC, SELFPAY ==
--- NOTE | 2024-09-14 11:16 | A.OFFVIS_ITS ---
Vital Signs 09/14/24 11:21 Height 4 ft 10 in Weight 162 lb 8 oz BMI 34.0 BP 125/67 Blood Pressure Location Rt brachial Position Sitting Pulse 84 Pulse Source Pulse Oximeter Pulse Oximetry (%) 100 Oxygen Delivery Method Room Air Intake Visit Reasons: Follow up Intake Note: Pain today 6/10 Public Health Training Assistant Required: No Accompanied by: Self / Same As Patient Allergies levofloxacin (From LEVAQUIN) Allergy (Intermediate, Verified 09/14/24 11:22) redness and itchiness latex (LATEX) Allergy (Unknown, Verified 09/14/24 11:22) RASH HPI Comments Details: The patient is a 49-year-old female presenting with chronic back and hip pain and to discuss recent spine and hip xray results. The patient reports that the pain radiates primarily to the right buttock and occasionally to both sides and into lateral hips. The patient has a history of fibromyalgia, which may exacerbate her sensitivity to pain. She has been undergoing physical therapy for six weeks, which she finds beneficial in learning new stretching techniques. The patient has a family history of osteoporosis, but she does not have the condition herself. She previously received cortisone injections in her shoulders, but they were discontinued due to diminishing effectiveness. Patient is interested to undergo therapeutic right SI joint injection to address her symptoms. Denies any recent cough, cold, infection, fever or any significant changes in medical history since last office visit. 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 She was last seen in our office in December 2023 for duloxetine refill. Her history indicates a significant and persistent fibromyalgia with concurrent chronic lower back pain, which she suggests is not limited to fibromyalgia alone. Recurring pain affects her lower back, hips, and shoulders; numbness noted in the arms persists for over a month. Diagnosed conditions include interstitial cystitis, IBS, Crohn's disease, depression and anxiety. She utilizes duloxetine for fibromyalgia along with amitriptyline, noticing relief with no adverse effects, and is open to increasing duloxetine dosage as previously discussed. 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 Overhead, imaging reveals unremarkable spinal conditions from her past CT scan and normal lumbar and knee x-rays. Patient is inclined towards more non-pharmacological interventions for her pain management journey. - Onset: Chronic wide spread body pain; aching and numbness in the arms for about a month. - Quality: Constant pain in the lower back, hips, and shoulders; numbness starting from elbow to fingers, left>right. - Location: Lower back, hips, shoulders, arms. - Radiation: Numbness from elbow to fingers. - Exacerbating factors: Bending, twisting, physical activities at work. - Relieving factors: Duloxetine provides some relief; pressure applied during certain movements eases tension. - Interference with activities: Bending, twisting exacerbates pain; affects daily work duties which are primarily physically demanding. - Affect: Pain provokes concern, feeling that diagnosis is insufficient for totality of pain. - Analgesia: Currently taking duloxetine without side effects; poised to increase the dosage. - Adverse Effects: Reports no adverse effects from current medication regimen. - Activities of Daily Living: Pain impacts work life, reducing overall physical activity outside of duty; expresses need for relief. - Aberrant Drug Related Behaviors: None reported; history of proper medication adherence. PRIOR 01/02/24: Patient presents today for follow-up for medication review. She was initially seen in our office last year in December and was prescribed duloxetine. Patient reports good tolerance with medication and significant improvement in her fibromyalgia and low back pain. She denies any significant knee pain today. Patient reports increased mobility, improved daily activities and functioning and better sleep with duloxetine. She is interested to trial twice a day dose. Denies any recent cough, cold, infection, fever, any significant changes in her medical history, medications or recent hospitalizations. PRIOR: Patient is a pleasant 47 years old female with history of fibromyalgia, chronic pain syndrome, cervicalgia, fatigue presents today for initial evaluation for lower back pain. Denies any past or recent trauma, injury or falls. Back pain is mostly axial with occasional radiation to her lateral hip and thigh but not below knee level. Reports chronic bilateral knee pain, worse with climbing stairs. Patient also presents with widespread body pain consistent with fibromyalgia. Neck pain has been minimal in the past few weeks. Denies previous spine surgery or injections. Every movement, any activity or weather changes increase her back pain. Pain affects her daily activities, functioning, sleep, social activities, mood and quality of life. Denies any fever, abdominal or groin pain, weakness, gait instability or imbalance, bladder or bowel dysfuncti on, or saddle anesthesia. Location Lower back, bilateral knee pain Duration Chronic pain for many years Characteristics of symptom or complaint Aching, burning, tingling, dull, numbness, tiring Aggravating or associated factors Movements, walking, sitting, climbing stairs, weather changes Relieving factors Rest, laying down, Tylenol, Marijuana (dispensary), methocarbamol Treatment PT, chiropractic therapy- 3 years ago, no improvement PFSH Medical History Diverticulitis Crohn disease Interstitial cystitis Bipolar 2 disorder Anxiety Depression Surgical History S/P ureteral stent placement History of tubal ligation Social History Household Members: Spouse and Family Housing: House Alcohol intake: never Patient Tobacco Use Status: Never used Tobacco e-Cigarette/Vaping Use: Currently Using Second Hand Smoke Exposure: No service: No 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 [employer] Gender identity: Female Vision needs: Yes (glasses) Female Reproductive History Menstrual Age of Menarche: 10 Review of Systems Const Details: - Musculoskeletal: Reports chronic back pain radiating to the right buttock - Neurological: Denies numbness or tingling, weakness, bladder or bowel dysfunction or saddle anesthesia - Sleep: Reports adequate sleep with Ambien All systems reviewed & are unremarkable except as noted in HPI and below Physical Exam Vital Signs: Last Vital Signs Pulse 84 09/14/24 11:21 BP 125/67 09/14/24 11:21 Pulse Ox 100 09/14/24 11:21 Oxygen Delivery Method Room Air 09/14/24 11:21 BMI result Body Mass Index 34.0 General: Appears afebrile. Alert and oriented. Mood and affect appropriate. Follows and participates in conversation appropriately. Respiratory effort is unlabored. No cough. Able to transition from sit to stand unassisted. Ambulates with bilaterally normal heel strike and toe off. General: Yes no CVA tenderness Back/Spine/Pelvis Other: Limited lumbar extension due to pain, lumbar flexion is intact and does not reproduce pain but mild stiffness. Facet loading test positive bilaterally. +Jaime?s, Stinchfield, Pelvic Compression and Gaenslen?s tests are positive on the right, equivocal on the left. Mild to moderate TTP in both SI joint areas. Multiple tender 16/16 TTP points upper and lower extremities. Back: no CVA tenderness Cervical Spine: cervical ROM normal, cervical muscular tenderness and No Cervical spine tenderness Thoracic/Lumbar Spine: thoracic and lumbar spine normal to inspection, No Thoracic/lumbar spine scar(s), Lasegue's sign negative, straight leg raise negative bilaterally, pain with thoraco-lumbar ROM (extension), paraspinal muscle tenderness, No thoracic spinal tenderness and lumbar spinal tenderness at L4 and at L5 Pelvis: buttock tenderness on the right Sacroiliac joints: bilaterally (right>left) tender to palpation Extrem General: Yes capillary refill normal, Yes no clubbing, cyanosis or edema and Yes no calf tenderness Results Reviewed Results Reviewed: XR lumbar spine 4V min 09/01/24 CLINICAL INFORMATION: Low back pain. TECHNIQUE: AP, oblique and lateral views. COMPARISON: None FINDINGS: Mild multilevel endplate sclerosis. No acute cortical disruption or malalignment. No lytic or blastic lesions. Facet joint hypertrophy at L5-S1. T-shaped contraceptive device overlapping the mid sacrum. IMPRESSION: Mild multilevel spondylosis without acute fracture or listhesis. XR BILATERAL HIPS WITH AP PELVIS 09/02/24 CLINICAL INFORMATION: M25.551 - Pain in right hip COMPARISON: None available. TECHNIQUE: AP view of the pelvis and single views of each hip were obtained. FINDINGS: Bony pelvis is intact. Mild sclerosis and the sacroiliac joints. No acute cortical disruption or malalignment in either coxofemoral joint. There is preservation of the joint spaces in the hips. There is a T-shaped contraceptive device overlapping the mid sacrum. IMPRESSION: No acute fracture or dislocation. Assessment & Plan Assessment & Plan (1) Low back pain: Code(s): M54.50 - Low back pain, unspecified Category: Medical (2) Bilateral hip pain: Code(s): M25.551 - Pain in right hip; M25.552 - Pain in left hip Category: Medical (3) Fibromyalgia: Code(s): M79.7 - Fibromyalgia Category: Medical (4) Chronic pain syndrome: Code(s): G89.4 - Chronic pain syndrome Category: Medical (5) Sacroiliac joint pain: Code(s): M53.3 - Sacrococcygeal disorders, not elsewhere classified Category: Medical (6) Lumbosacral spondylosis: Code(s): M47.817 - Spondylosis without myelopathy or radiculopathy, lumbosacral region Category: Medical Plan The plan includes administering sided sacroiliac joint injections to provide pain relief, starting with the right side where the pain is more pronounced. Alternative options such as sacroiliac joint peripheral nerve stimulation or radiofrequency ablation for up to 10-12 months pain relief may be considered if the injections are not effective. More permanent options include Curonix PNS trial and implant vs SI joint fusion. The patient is advised to continue physical therapy to maintain mobility and improve circulation. Continue Duloxetine and amitriptyline for fibromyalgia, monitor for any adverse side effects. Schedule Right therapeutic sacroiliac joint injection with local, oral Ativan and fluoroscopy. If no relieve, will consider lumbar medial branch blocks. Expectations, risks and benefits were reviewed. Patient is aware she will be contacted to schedule this procedure. Follow-up is planned after the injections to assess its effectiveness and determine further management steps. Patient was informed and verbally consented to the use of an ambient scribe for clinic note documentation during this visit. Coding Level of Care Code Est Pt Level 4 (47832) Complex EM visit Add On G2211 Diagnoses Low back pain M54.50 Bilateral hip pain M25.551; M25.552 Fibromyalgia M79.7 Chronic pain syndrome G89.4 Sacroiliac joint pain M53.3 Lumbosacral spondylosis M47.817
[2024-09-14 11:21] VITALS: BP 125/67; PULSE 84; O2SAT 100; BMI 34.0
--- OUTSIDE RECORDS SUMMARY | 2024-09-14 12:08 | XMS_ITS | Data Portability ---
Author Organization KALLI otoole [address] Address [address] [place] [address] Assessment No assessment recorded. Plan of Treatment Reminders Order Date Submit Date Provider Last Modified By Organization Details Last Modified Time Details Appointments None recorded. Lab rapid flu (A+B) 2022 023 [email or web address] 247 [facility], [address] [place] [address], [address], 15:39:57 Referral None recorded. Procedures None recorded. Surgeries None recorded. Imaging None recorded. Medication Orders benzonatate 200 mg capsule 2022 023 [email or web address] 247 [facility]/Pharmacy #[id number], [address] [place], [address], 16:30:55 Patient TargetsNo targets recorded. Patient InstructionsNo instructions recorded. Reason for Referral None Reported. Results Created Date Observation Date Name Description Value Unit Range Abnormal Flag Note LastModifiedBy Organization Detail LastModifiedTime 05/26/1905/25/2022 rapid flu (A+B) Unknown Analyte Normal = Negati ve Not Available [facility] [address] [place] [address], [phone], 05/25/2022 14:35:36 05/26/1905/25/2022 rapid flu (A+B) Unknown Analyte Normal = Negati ve Not Available [facility] [address] [place] [address], [phone], 05/25/2022 14:35:36 05/26/1905/25/2022 rapid flu (A+B) Unknown Analyte negati ve Not Available [address], [address], 05/25/2022 14:35:36 05/26/19 23 05/25/2022 rapid flu (A+B) Unknown Analyte negati ve Not Available [address] jordan [address], [address], 05/25/2022 14:35:36 Result Notes None recorded. Problems Name Problem SNOMED Code Status Onset Date Resolution Date Notes Provider Name and Address Organization Details Recorded Time Fibromyalgia 321250430 Active 2022 IRIS COUVERTIE R null, [place] - [facility] 3 14:33:24 Anxiety 20527907 Active 2022 IRIS COUVERTIE R null, [place] - [facility] 3 14:33:53 Insomnia 916401014 Active 2022 IRIS COUVERTIE R null, PA [...] Updated DateTime 3 152.4 cm 32 kg/m2 22005.1 5 g 97.8 [degF] 18 /min 97 % 97 % 82 /min 112 mm[Hg] 77 mm[Hg] MACK Perez [facility] [employer] 14:37:01 Social History Question Answer Notes LastModified by [employer] Details LastModified Time Tobacco Smoking Status Former Smoker MACK mcdonald [place] - [facility] 05/25/2022 14:34:41 What Is Your Water Source? [...] Functional Status Question Answer Note LastModified by [employer] Details LastModified Time Do you use any [...] SNOMED-CT Code Diagnosis ICD10 Code Diagnosis Note [id number] 20995_[facility] [address] [address] 11/21/2019 10:50:08 11/21/2019 12:03:56 [id number] ADRY ROTH MD [address] [address] [place] [address] 05/25/2022 12:25:18 05/25/2022 16:10:51 Viral syndrome 172401169 B34.9 CoughBlack Elderberry Syrup:1-2 tsp 2-3 times a day for 5 days as needed for coughing.S ambucol Black Elderberry Original Syrup (available at [employer] )[employer] Black Elderberry Syrup, 5.4-Ounce Bottle (available at [employer] or [employer]) Use a cool mist humidifier in the [...] electrolyt e solutions as discussed. Postviral cough 98952427 4 R05.3 Health Concerns Section Related Observation LastModified by Organization Detai ls LastModified Time None Recorded Concern Status LastModified by Organization Details LastModified Time None Recorded Advance Directives Directive None Recorded Payers Insurance Date Sequence Insurance Name Policy Number Policy Pedroza Covered Member ID Pedroza Member ID Guarantor Name 06/11/2022 1 [place] [id number] Karlo Harvey Williams [id number] Joycelyn Williams Notes Date Note Type Note Provider Name and Address Organization Details Recorded Time 05/25/2022 text/html congestion, cough, chills, x 6 days. Afebrile. Very tired. HX of Asthma. She doesn't feel like this is an Asthma episode. No N/V/D/rash o rother symptoms. Covid negative. ADRY ROTH MD [address] [place], [address], [place] - [facility] 06/11/2022 19:32:15 OBGyn Episode No OBEpisode recorded.
== END 2024-09-14 11:44 | disposition home or self-care (01) ==
LOC: HO.PMC 11:16
PROVIDERS: PCP Pediatrics; Visit Provider Nurse Practitioner Family
DX: M54.50 Low back pain, unspecified (principal); M25.551 Pain in right hip; M25.552 Pain in left hip; M79.7 Fibromyalgia; G89.4 Chronic pain syndrome; M53.3 Sacrococcygeal disorders, not elsewhere classified; M47.817 Spondylosis without myelopathy or radiculopathy, lumbosacral region
CPT/HCPCS: 99214

== ENCOUNTER 2024-09-22 10:40 | Outpatient (AMB) | payer BC, SELFPAY ==
--- NOTE | 2024-09-22 10:56 | A.OFFVIS_ITS ---
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 Accompanied by: Self / Same As Patient Allergies levofloxacin (From LEVAQUIN) Allergy (Intermediate, Verified 09/22/24 11:13) redness and itchiness latex (LATEX) Allergy (Unknown, Verified 09/22/24 11:13) RASH Medication List - Last Reconciled 09/22/24 by ANDREAS KenneyP- amitriptyline 50 mg PO BEDTIME dextroamphetamine-amphetamine 15 mg ER 1 cap PO DAILY duloxetine 30 mg PO BID 30 days hyoscyamine sulfate 0.125 mg sublingual DAILY PRN levonorgestrel (Mirena) 1 device intrauterine ONCE lidocaine 5% 2 patches topical DAILY 30 days oxcarbazepine 300 mg PO BID tadalafil 5 mg PO DAILY 90 days zolpidem 10 mg PO BEDTIME PRN HPI Comments Details: Joycelyn is a very pleasant 49-year-old female patient of Dr. Jimenez. She presents to the office today for follow-up of her interstitial cystitis. She has a past medical history of Raynaud phenomenon, anxiety, bipolar 2 disorder, Crohn's disease, depression, diverticulitis, interstitial cystitis, IBS, and fibromyalgia. When asked she reports to be doing and feeling well. She reports compliance with 5 mg of Cialis daily for bladder stability. She discusses how helpful this has been in managing symptoms of her interstitial cystitis. She currently denies any bothersome urinary issues or concerns. In office urinalysis results reviewed with the patient today. PVR 0ml's. She continues performing pelvic floor exercises at home. She also discusses following up with pain management here for her ongoing low-back pain she continues to experience. She discusses her upcoming CT procedure she has. Of note, patient is status post cysto hydrodistention with Dr. Anthony Hall 10/07. When asked she reports to be happy with her current voiding parameters. She continues with FODMAP diet. Discussed and stressed the importance of drinking plenty of water daily. When asked patient denies incontinence, hematuria, dysuria, foul-smelling urine, changes to urinary stream, flank pain, fever, and or chills. She otherwise offers no other issues or concerns at this time. 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 Gender identity: Female Vision needs: Yes (glasses) Female Reproductive History Menstrual Age of Menarche: 10 Physical Exam Const General: cooperative, healthy appearing, comfortable, no acute distress, well developed, alert and awake Orientation/consciousness: patient oriented x3 Limitations: no limitations HEENT Head: Yes normal to inspection, Yes normocephalic and Yes atraumatic Ears: hearing grossly normal bilaterally Eyes General: appearance normal, both eyes and all related structures Neck Neck: Yes normal visual inspection and Yes trachea midline Chest Chest palpation & inspection: normal inspection of the chest Resp Effort & Inspection: normal respiratory effort and able to speak in complete sentences Cardio Rate: regular rate GI Inspection: Yes normal to inspection General: Yes no CVA tenderness Back/Spine/Pelvis Back: no CVA tenderness Skin General skin exam: no rashes or lesions noted Neuro General: patient oriented x3 Extrem General: Yes normal to inspection Psych Appearance: grossly normal and well kempt Mental Status: mental status grossly normal Speech and movement: Normal speech and movement present and Clear speech present Affect: normal affect Attitude: cooperative Thought process: Normal thought process present Thought content: Normal thought content present Insight: Fair insight present (Psych) Judgement: Fair judgement present (Psych) Assessment & Plan Assessment & Plan (1) Interstitial cystitis: Code(s): N30.10 - Interstitial cystitis (chronic) without hematuria Category: Medical Plan In office urinalysis results reviewed with the patient today; as noted above. PVR 0 mL. Continue low-dose tadalafil as prescribed She currently denies any bothersome urinary issues or concerns. She reports be happy with current voiding parameters. Continue avoiding bladder triggers and irritants. All questions were answered. Follow-up in 6 months with PVR; or sooner with any issues, concerns, and or questions. Patient Instructions: The patient had an opportunity to ask questions regarding the treatment plan. All questions were answered. Physical exam, labs, and imaging were discussed and reviewed in detail. As well as risks, benefits, and discussion of treatment choices. No major barriers to understanding were identified. The patient expressed understanding and agreement with the above treatment plan. The patient was made aware they should contact our office by phone for worsening of their current condition, the appearance of new symptoms, or with any questions or concerns. Compliance is encouraged with any medications and follow up testing that is ordered. It is a privilege to be allowed the opportunity to participate in? your urological care.? Again, if you have any questions or concerns If you have any questions or concerns please do not hesitate to contact me. The office is [phone]. This note is constructed using voice recognition software. While every effort has been made to ensure accuracy mushroom press operator errors may have been included. Yours sincerely, CATALINA Kenney Coding Level of Care Code Est Pt Level 3 (90150) Complex EM visit Add On G2211 Diagnoses Interstitial cystitis N30.10
--- OUTSIDE RECORDS SUMMARY | 2024-09-22 11:40 | XMS_ITS | Data Portability ---
Author Organization [facility]I [facility] Address [address] [place] [address] Assessment No assessment recorded. Plan of Treatment Reminders Order Date Submit Date Provider Last Modified By Organization Details Last Modified Time Details Appointments None recorded. Lab rapid flu (A+B) 2022 023 [email or web address] 247 [facility] [address] [place] [address], [phone], 15:39:57 Referral None recorded. Procedures None recorded. Surgeries None recorded. Imaging None recorded. Medication Orders benzonatate 200 mg capsule 2022 023 [email or web address] 247 [id number], [address] [place], [address], 16:30:55 Patient TargetsNo targets recorded. Patient InstructionsNo instructions recorded. Reason for Referral None Reported. Results Created Date Observation Date Name Description Value Unit Range Abnormal Flag Note LastModifiedBy Organization Detail LastModifiedTime 05/26/1905/25/2022 rapid flu (A+B) Unknown Analyte Normal = Negati ve Not Available [facility] [address] [place] [address], [phone], 05/25/2022 14:35:36 05/26/1905/25/2022 rapid flu (A+B) Unknown Analyte Normal = Negati ve Not Available [facility] [address] [place] [address], [phone], 05/25/2022 14:35:36 05/26/1905/25/2022 rapid flu (A+B) Unknown Analyte negati ve Not Available [address], [address], 05/25/2022 14:35:36 05/26/19 23 05/25/2022 rapid flu (A+B) Unknown Analyte negati ve Not Available [address], [address], 05/25/2022 14:35:36 Result Notes None recorded. Problems Name Problem SNOMED Code Status Onset Date Resolution Date Notes Provider Name and Address Organization Details Recorded Time Fibromyalgia 058637680 Active 2022 IRIS COUVERTIE R null, [place] - [facility] 3 14:33:24 Anxiety 14461012 Active 2022 IRIS COUVERTIE R null, [place] - [facility] 3 14:33:53 Insomnia 421853145 Active 2022 IRIS COUVERTIE R null, PA [...] blood by Pulse oximetry Heart rate Systolic And Diastolic Provider Name and Address Organization Details Last Updated DateTime 3 152.4 cm 32 kg/m2 56185.1 5 g 97.8 [degF] 18 /min 97 % 97 % 82 /min 112/77 mm[Hg] MACK Perez [facility] 14:37:01 Social History Question Answer Notes LastModified by [employer] Details LastModified Time Tobacco Smoking Status Former [...] Functional Status Question Answer Note LastModified by [employer]) Details LastModified Time Do you use any [...] SNOMED-CT Code Diagnosis ICD10 Code Diagnosis Note [id number] [facility] [address] [place] [address] 11/21/2019 10:50:08 11/21/2019 12:03:56 [id number] ADRY ROTH MD [facility] [address] [place] [address] 05/25/2022 12:25:18 05/25/2022 16:10:51 Viral syndrome 940902999 B34.9 CoughBlack Elderberry Syrup:1-2 tsp 2-3 times a day for 5 days as needed for coughing.S ambucol Black Elderberry Original Syrup (available at [employer] )[employer] Black Elderberry Syrup, 5.4-Ounce Bottle (available at [employer] or Do It In Person) Use a cool mist humidifier in the [...] electrolyt e solutions as discussed. Postviral cough 53586352 4 R05.3 Health Concerns Section Related Observation LastModified by Organization Detai ls LastModified Time None Recorded Concern Status LastModified by Organization Details LastModified Time None Recorded Advance Directives Directive None Recorded Payers Insurance Date Sequence Insurance Name Policy Number Policy Pedroza Covered Member ID Pedroza Member ID Guarantor Name 06/11/2022 1 JOSEMANUEL (PPO) [id number] Karlo Caldwellgo [id number] Joycelyn Williams Notes Date Note Type Note Provider Name and Address Organization Details Recorded Time 05/25/2022 text/html congestion, cough, chills, x 6 days. Afebrile. Very tired. HX of Asthma. She doesn't feel like this is an Asthma episode. No N/V/D/rash o rother symptoms. Covid negative. ADRY ROTH MD [address] [place], [address], [place] - [facility] 06/11/2022 19:32:15 OBGyn Episode No OBEpisode recorded.
== END 2024-09-22 11:20 | disposition home or self-care (01) ==
LOC: HO.HUSH 10:41
PROVIDERS: PCP Pediatrics; Visit Provider Nurse Practitioner Family
DX: N30.10 Interstitial cystitis (chronic) without hematuria (principal); Z13.9 Encounter for screening, unspecified
CPT/HCPCS: 99213

== ENCOUNTER → 2024-09-22 10:40 | Outpatient (BNVA) | payer BC, SELFPAY | PROVIDERS: PCP Pediatrics; Visit Provider Nurse Practitioner Family | DX: N30.10 Interstitial cystitis (chronic) without hematuria (principal) | CPT/HCPCS: 51798; 81003 ==

== ENCOUNTER 2024-10-08 06:40 | Outpatient (REF) | payer BC, SELFPAY ==
--- NOTE | ~2024-10-08 | FL_ITS ---
EXAMINATION: FL GUIDANCE ONLY HISTORY: M53.3 - Sacrococcygeal disorders, not elsewhere classified COMPARISON: None available. TECHNIQUE: Fluoroscopy time: Less than 0.1 minute. Cumulative Dose: 1.20 mGy. DAP: 0.91271 mGym2 Images: 2. FINDINGS: Fluoroscopic spot films of the right hemipelvis demonstrate a needle in the region of the sacroiliac joint. FL/FL guidance in treatment room IMPRESSION: Fluoroscopy during procedure. Please see procedure report for additional information. Electronically signed by: Amadeo Lovell MD 10/08/2024 03:48 PM EDT
--- OUTSIDE RECORDS SUMMARY | 2024-10-08 06:41 | XMS_ITS | Data Portability ---
Author Organization [facility] Address [address] [place] [address] Assessment No assessment recorded. Plan of Treatment Reminders Order Date Submit Date Provider Last Modified By Organization Details Last Modified Time Details Appointments None recorded. Lab rapid flu (A+B) 2022 023 [email or web address] 247 [facility] [address] [place] [address], [phone], 15:39:57 Referral None recorded. Procedures None recorded. Surgeries None recorded. Imaging None recorded. Medication Orders benzonatate 200 mg capsule 2022 023 [email or web address] 247 [id number], [address] [place], [address], 16:30:55 Patient TargetsNo targets recorded. Patient InstructionsNo instructions recorded. Reason for Referral None Reported. Results Created Date Observation Date Name Description Value Unit Range Abnormal Flag Note LastModifiedBy Organization Detail LastModifiedTime 05/26/1905/25/2022 rapid flu (A+B) Unknown Analyte Normal = Negati ve Not Available [facility] [address] [place] [address], [phone], 05/25/2022 14:35:36 05/26/1905/25/2022 rapid flu (A+B) Unknown Analyte Normal = Negati ve Not Available [facility] [address] [place] [address], [phone], 05/25/2022 14:35:36 05/26/1905/25/2022 rapid flu (A+B) Unknown Analyte negati ve Not Available [address], [address], 05/25/2022 14:35:36 05/26/19 23 05/25/2022 rapid flu (A+B) Unknown Analyte negati ve Not Available [address], [address], 05/25/2022 14:35:36 Result Notes None recorded. Problems Name Problem SNOMED Code Status Onset Date Resolution Date Notes Provider Name and Address Organization Details Recorded Time Fibromyalgia 042814924 Active 2022 IRIS COUVERTIE R null, [place] - [facility] 3 14:33:24 Anxiety 92710292 Active 2022 IRIS COUVERTIE R null, [place] - [facility] 3 14:33:53 Insomnia 544541806 Active 2022 IRIS COUVERTIE R null, PA [...] Updated DateTime 3 152.4 cm 32 kg/m2 08724.1 5 g 97.8 [degF] 18 /min 97 % 97 % 82 /min 112/77 mm[Hg] MACK Perez [facility] 14:37:01 Social History Question Answer Notes LastModified by [employer] Details LastModified Time Tobacco Smoking Status Former [...] Functional Status Question Answer Note LastModified by [employer] Details LastModified Time Do you use any [...] SNOMED-CT Code Diagnosis ICD10 Code Diagnosis Note [id number] [facility] [address] [address] [place] [address] 11/21/2019 10:50:08 11/21/2019 12:03:56 [id number] ADRY ROTH MD [facility] [address] [place] [address] 05/25/2022 12:25:18 05/25/2022 16:10:51 Viral syndrome 502337033 B34.9 CoughBlack Elderberry Syrup:1-2 tsp 2-3 times a day for 5 days as needed for coughing.S ambucol Black Elderberry Original Syrup (available at [employer] )[employer] Black Elderberry Syrup, 5.4-Ounce Bottle (available at [employer] or [employer]) Use a cool mist humidifier in the [...] electrolyt e solutions as discussed. Postviral cough 42316093 4 R05.3 Health Concerns Section Related Observation LastModified by Organization Detai ls LastModified Time None Recorded Concern Status LastModified by Organization Details LastModified Time None Recorded Advance Directives Directive None Recorded Payers Insurance Date Sequence Insurance Name Policy Number Policy Pedroza Covered Member ID Pedroza Member ID Guarantor Name 06/11/2022 1 JOSEMANUEL (PPO) [id number] Karlo Caldwellgo [id number] Notes Date Note Type Note Provider Name and Address Organization Details Recorded Time 05/25/2022 text/html ROS as noted in the HPI congestion, cough, chills, x 6 days. Afebrile. Very tired. HX of Asthma. She doesn't feel like this is an Asthma episode. No N/V/D/rash o rother symptoms. Covid negative. ADRY ROTH MD [address] [place], [address], [place] - [facility] 06/11/2022 19:32:15 OBGyn Episode No OBEpisode recorded.
== END 2024-10-08 06:41 | disposition home or self-care (01) ==
LOC: CF 06:40
PROVIDERS: Visit Provider Internal Medicine
DX: M53.3 Sacrococcygeal disorders, not elsewhere classified (principal)
CPT/HCPCS: 27096; J2003; J2795; J3301

== ENCOUNTER 2024-10-08 11:44 | Outpatient (AMB) | payer BC, SELFPAY ==
[2024-10-08 12:23] VITALS: BP 110/69; PULSE 88; RESP 16; O2SAT 96; BMI 33.9
--- NOTE | 2024-10-08 12:23 | A.OFFVIS_ITS ---
Vital Signs 10/08/24 12:23 10/08/24 12:27 Height 4 ft 10 in 4 ft 10 in Weight 162 lb 162 lb BMI 33.9 33.9 BP 110/69 116/70 Blood Pressure Location Lt brachial Lt brachial Position Sitting Sitting Respiration 16 16 Pulse 88 83 Pulse Source Pulse Oximeter Pulse Oximeter Pulse Oximetry (%) 96 97 Oxygen Delivery Method Room Air Room Air Intake Visit Reasons: Right theraputic SIJ inj/ ativan Allergies levofloxacin (From LEVAQUIN) Allergy (Intermediate, Verified 09/22/24 11:13) redness and itchiness latex (LATEX) Allergy (Unknown, Verified 09/22/24 11:13) RASH HPI HPI Right theraputic SIJ inj/ ativan: Details: Patient presents for scheduled procedure. Denies any recent cough, cold, infection, fever or other significant changes in medical history since last office visit. 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 Immediately prior to starting the procedure, a time-out safety check was conducted. The patient's identification, procedure name, procedure site, and procedure laterality were confirmed with the patient. ? Patient was placed prone on the fluoroscopy table and the lumbosacral area was prepped using ChloraPrep and draped with sterile draped in standard fashion. The C-arm was rotated in a contralateral oblique fashion until the medial border of the iliac crest no longer foreshadowed the posterior sacroiliac joint line. The skin and subcutaneous tissue was anesthetized using 1 mL of 0.75% plain lidocaine with 1.5-inch 25-gauge needle in the middle region of the joint line.? A 3.5-inch 22-gauge spinal needle with small bend on the tip was slowly advanced towards the joint line, coaxial to the x-ray beam. Once bony content was obtained, the needle was easily slid into the intra-articular space.? Intra- articular needle position was confirmed using lateral fluoroscopy.? A total volume of 2.5mL of solution containing 40 mg trimcinilone and rest 0.5% of ropivacaine was injected intra-articularly. The stylet was reinserted and needle was removed. The patient tolerated the procedure well. Patient denied any lower extremity weakness or numbness. Patient was observed for 30 min and was discharged after fulfilling the standard discharge criteria. Coding 71507 - Sacroiliac Procedure code (CPT) selection complete Assessment & Plan Assessment & Plan (1) Sacroiliac joint pain: Code(s): M53.3 - Sacrococcygeal disorders, not elsewhere classified Category: Medical Plan Patient is status post right therapeutic SI joint injection. Patient tolerated procedure well and was discharged home in stable condition with discharge instructions. All questions were answered. We will follow-up via telephone or in clinic to assess response to therapy. A follow-up appointment was made during today's visit. Orders: Orders FL guidance in treatment room 10/08/24 M53.3 - Sacrococcygeal disorders, not elsewhere classified Medications: New lorazepam (Ativan) Take 30 minutes prior to arrival to procedure 1 mg PO ONCE 1 tab 0RF anxiety Coding Level of Care Code Procedure Only Diagnoses Sacroiliac joint pain M53.3 CPT Codes Coding - Joint 9: 83342 - Sacroiliac ([id number])
[2024-10-08 12:27] VITALS: BP 116/70; PULSE 83; RESP 16; O2SAT 97; BMI 33.9
== END 2024-10-08 13:01 | disposition home or self-care (01) ==
LOC: HO.PMCPRC 11:44
PROVIDERS: PCP Pediatrics; Visit Provider Internal Medicine
DX: M53.3 Sacrococcygeal disorders, not elsewhere classified (principal)
CPT/HCPCS: 27096

== ENCOUNTER 2024-10-20 13:00 | Outpatient (RCR) | payer BC, SELFPAY ==
--- NOTE | 2024-08-07 14:29 | MHC.PT.EP ---
[facility] [place] Office [place] [facility] [place] Office [address] Rafaela Bonilla [address] [phone] F: [phone] F: [phone] F: [phone] F: [phone] Physical Therapy Plan of Care Date of Evaluation: 08/07/24 Date of Surgery: Diagnosis: cervicalgia LBP pain in R knee Assessment: 49 y/o female referred to PT with chronic LBP, hip and knee pain. Of note, she has a long hx of chronic LBP, fibromyalgia, IBS, celiacs disease. Reports pain and difficulty with housework (sweep, mop, moving things), laundry, transitional movements, bending, walking and stairs. Examination shows decreased lumbar AROM, decreased B LE strength, pain, and impaired gait pattern. Reviewed body mechanics in length with sweeping, vacuuming, and lifting as well as distributed HEP. Recommend PT 2x/week for 5 weeks to address impairments, implement HEP, and optimize functional mobility. 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 Manual therapy to restore motion and function. Therapeutic exercise to improve strength and flexibility. Neuromuscular re-education for posture and balance. Therapeutic activities to return to functional activities of daily living. Electronically signed by: Wendy Dominguez PT Please sign and return to therapist. Thank you for your referral.
--- NOTE | 2024-10-20 14:22 | MHC.PT.DC ---
[facility] [place] Office [place] Office [place] Office [address] Rafaela Bonilla [address] [phone] F: [phone] F: [phone] F: [phone] F: [phone] Physical Therapy Discharge Report Diagnosis: cervicalgia LBP pain in R knee Date of Surgery: Date of Evaluation: 08/07/24 Date of Discharge: 10/20/24 Treatments to Date: 17 Cancellations to Date: 0 No Shows to Date: 0 Discharge Status: Improved Function Independent with HEP Discharge Summary: Reviewed exercises and no corrections needed. Reviewed importance of HEP compliance 2-3x/week for max gains. At this time, pt is appropriate for d/c to I HEP Electronically signed by: Wendy Dominguez PT Please sign and return to therapist. Thank you for your referral.
== END 2024-10-20 14:22 | disposition home or self-care (01) ==
LOC: HO.PT 13:00
PROVIDERS: PCP Pediatrics; Visit Provider Nurse Practitioner Family
DX: M54.2 Cervicalgia (principal); M54.50 Low back pain, unspecified; M25.561 Pain in right knee; M25.562 Pain in left knee; M25.551 Pain in right hip; M25.552 Pain in left hip
CPT/HCPCS: 97110; 97112; 97140; 97162

== ENCOUNTER 2024-11-12 09:51 | Outpatient (AMB) | payer BC, SELFPAY ==
--- NOTE | 2024-11-12 09:55 | A.OFFVIS_ITS ---
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 The injection was administered on 10/08/24, and the patient reports that it took 10 to 14 days to take effect. Currently, her pain level is 4/10, with complete relief in the right buttock but persistent pain in the middle to lower back with daily activities. The patient has a history of multilevel spinal arthritis, with the most severe i nvolvement at the L5-S1 level. She experiences pain exacerbated by movement, particularly standing or sitting for prolonged periods, extending backwards and finds it challenging to find a comfortable balance. The patient uses Tylenol Arthritis and Biofreeze for pain management and has been prescribed duloxetine, which she takes as directed. The patient also has a diagnosis of fibromyalgia, for which duloxetine is prescribed to help manage muscle pain. She reports that her pain has been persistent for over 10 years, impacting her daily activities and quality of life. Past Procedures: 10/08/24: Right therapeutic SI joint injection-90% ongoing pain relief PRIOR: The patient is a 49-year-old female presenting with chronic back and hip pain and to discuss recent spine and hip xray results. The patient reports that the pain radiates primarily to the right buttock and occasionally to both sides and into lateral hips. The patient has a history of fibromyalgia, which may exacerbate her sensitivity to pain. She has been undergoing physical therapy for six weeks, which she finds beneficial in learning new stretching techniques. The patient has a family history of osteoporosis, but she does not have the condition herself. She previously received cortisone injections in her shoulders, but they were discontinued due to diminishing effectiveness. Patient is interested to undergo therapeutic right SI joint injection to address her symptoms. Denies any recent cough, cold, infection, fever or any significant changes in medical history since last office visit. 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 She was last seen in our office in December 2023 for duloxetine refill. Her history indicates a significant and persistent fibromyalgia with concurrent chronic lower back pain, which she suggests is not limited to fibromyalgia alone. Recurring pain affects her lower back, hips, and shoulders; numbness noted in the arms persists for over a month. Diagnosed conditions include interstitial cystitis, IBS, Crohn's disease, depression and anxiety. She utilizes duloxetine for fibromyalgia along with amitriptyline, noticing relief with no adverse effects, and is open to increasing duloxetine dosage as previously discussed. 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 Overhead, imaging reveals unremarkable spinal conditions from her past CT scan and normal lumbar and knee x-rays. Patient is inclined towards more non-pharmacological interventions for her pain management journey. - Onset: Chronic wide spread body pain; aching and numbness in the arms for about a month. - Quality: Constant pain in the lower back, hips, and shoulders; numbness starting from elbow to fingers, left>right. - Location: Lower back, hips, shoulders, arms. - Radiation: Numbness from elbow to fingers. - Exacerbating factors: Bending, twisting, physical activities at work. - Relieving factors: Duloxetine provides some relief; pressure applied during certain movements eases tension. - Interference with activities: Bending, twisting exacerbates pain; affects daily work duties which are primarily physically demanding. - Affect: Pain provokes concern, feeling that diagnosis is insufficient for totality of pain. - Analgesia: Currently taking duloxetine without side effects; poised to increase the dosage. - Adverse Effects: Reports no adverse effects from current medication regimen. - Activities of Daily Living: Pain impacts work life, reducing overall physical activity outside of duty; expresses need for relief. - Aberrant Drug Related Behaviors: None reported; history of proper medication adherence. PRIOR 01/02/24: Patient presents today for follow-up for medication review. She was initially seen in our office last year in December and was prescribed duloxetine. Patient reports good tolerance with medication and significant improvement in her fibromyalgia and low back pain. She denies any significant knee pain today. Patient reports increased mobility, improved daily activities and functioning and better sleep with duloxetine. She is interested to trial twice a day dose. Denies any recent cough, cold, infection, fever, any significant changes in her medical history, medications or recent hospitalizations. PRIOR: Patient is a pleasant 47 years old female with history of fibromyalgia, chronic pain syndrome, cervicalgia, fatigue presents today for initial evaluation for lower back pain. Denies any past or recent trauma, injury or falls. Back pain is mostly axial with occasional radiation to her lateral hip and thigh but not below knee level. Reports chronic bilateral knee pain, worse with climbing stairs. Patient also presents with widespread body pain consistent with fibromyalgia. Neck pain has been minimal in the past few weeks. Denies previous spine surgery or injections. Every movement, any activity or weather changes increase her back pain. Pain affects her daily activities, functioning, sleep, social activities, mood and quality of life. Denies any fever, abdominal or groin pain, weakness, gait instability or imbalance, bladder or bowel dysfunction, or saddle anesthesia. Location Lower back, bilateral knee pain Duration Chronic pain for many years Characteristics of symptom or complaint Aching, burning, tingling, dull, numbness, tiring Aggravating or associated factors Movements, walking, sitting, climbing stairs, weather changes Relieving factors Rest, laying down, Tylenol, Marijuana (dispensary), methocarbamol Treatment PT, chiropractic therapy- 3 years ago, no improvement [facility] Medical History Diverticulitis Crohn disease Interstitial cystitis Bipolar 2 disorder Anxiety Depression Surgical History S/P ureteral stent placement History of tubal ligation Social History Household Members: Spouse and Family Housing: House Alcohol intake: never Patient Tobacco Use Status: Never used Tobacco e-Cigarette/Vaping Use: Currently Using Second Hand Smoke Exposure: No service: No 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 - Neurological: Denies any bladder or bowel dysfunction or saddle anesthesia. - General: Reports pain level of 4/10, intensifies to 6-8/10 with daily activities and movements. All systems reviewed & are unremarkable except as noted in HPI and below Physical Exam Vital Signs: Last Vital Signs Pulse 78 11/12/24 09:59 BP 119/61 11/12/24 09:59 Pulse Ox 98 11/12/24 09:59 Oxygen Delivery Method Room Air 11/12/24 09:59 BMI result Body Mass Index 34.3 General: Appears afebrile. Alert and oriented. Mood and affect appropriate. Follows and participates in conversation appropriately. Respiratory effort is unlabored. No cough. Able to transition from sit to stand unassisted. Ambulates with bilaterally normal heel strike and toe off. General: Yes no CVA tenderness Back/Spine/Pelvis Other: Limited lumbar extension due to pain, lumbar flexion is intact and does not reproduce pain but mild stiffness. Facet loading test positive bilaterally. Multiple tender 16/16 TTP points upper and lower extremities. Back: no CVA tenderness Cervical Spine: cervical ROM normal, cervical muscular tenderness and No Cervical spine tenderness Thoracic/Lumbar Spine: thoracic and lumbar spine normal to inspection, No Thoracic/lumbar spine scar(s), Lasegue's sign negative, straight leg raise negative bilaterally, pain with thoraco-lumbar ROM (extension), paraspinal muscle tenderness, No thoracic spinal tenderness and lumbar spinal tenderness at L4 and at L5 Sacroiliac joints: bilaterally (right>left) tender to palpation Extrem General: Yes capillary refill normal, Yes no clubbing, cyanosis or edema and Yes no calf tenderness Results Reviewed Results Reviewed: XR lumbar spine 4V min 09/01/24 CLINICAL INFORMATION: Low back pain. TECHNIQUE: AP, oblique and lateral views. COMPARISON: None FINDINGS: Mild multilevel endplate sclerosis. No acute cortical disruption or malalignment. No lytic or blastic lesions. Facet joint hypertrophy at L5-S1. T-shaped contraceptive device overlapping the mid sacrum. IMPRESSION: Mild multilevel spondylosis without acute fracture or listhesis. XR BILATERAL HIPS WITH AP PELVIS 09/02/24 CLINICAL INFORMATION: M25.551 - Pain in right hip COMPARISON: None available. TECHNIQUE: AP view of the pelvis and single views of each hip were obtained. FINDINGS: Bony pelvis is intact. Mild sclerosis and the sacroiliac joints. No acute cortical disruption or malalignment in either coxofemoral joint. There is preservation of the joint spaces in the hips. There is a T-shaped contraceptive device overlapping the mid sacrum. IMPRESSION: No acute fracture or dislocation. Assessment & Plan Assessment & Plan (1) Low back pain: Code(s): M54.50 - Low back pain, unspecified Category: Medical (2) Sacroiliac joint pain: Code(s): M53.3 - Sacrococcygeal disorders, not elsewhere classified Category: Medical (3) Lumbosacral spondylosis: Code(s): M47.817 - Spondylosis without myelopathy or radiculopathy, lumbosacral region Category: Medical (4) Fibromyalgia: Code(s): M79.7 - Fibromyalgia Category: Medical (5) Chronic pain syndrome: Code(s): G89.4 - Chronic pain syndrome Category: Medical Plan 1. Sacroiliac Joint Dysfunction The patient received a therapeutic sacroiliac joint injection, which provided complete relief in the right buttock. Future management may include repeating therapeutic injection or diagnostic nerve blocks to assess the need for r adiofrequency ablation or peripheral nerve stimulation trial if pain persists or worsens. 2. Multilevel Spinal Arthritis The patient has multilevel spinal arthritis, most severe at L5-S1, with pain exacerbated by movements, leaning backwards, house chores and prolonged standing or sitting. Management includes the use of Tylenol Arthritis, Biofreeze, and duloxetine, with consideration for diagnostic nerve blocks and potential radiofrequency ablation or Sprint PNS trial if pain levels increase. Schedule diagnostic bilateral L3-L4 DR L5 medial branch blocks with local and fluoroscopy. Expectations, risks and benefits were reviewed. Patient is aware she will be contacted to schedule this procedure. 3. Fibromyalgia The patient is diagnosed with fibromyalgia and is currently managed with duloxetine to help alleviate muscle pain. Continued monitoring and adjustment of medication may be necessary based on symptom progression and response to t reatment. All questions and concerns have been answered and patient agreed with the treatment plan. Follow up after injections and sooner as needed. Patient was informed and verbally consented to the use of an ambient scribe for clinic note documentation during this visit. Patient Instructions: - Continue taking Tylenol Arthritis, Biofreeze, and duloxetine as prescribed. - Maintain a balance between sitting and standing to manage pain levels. - Follow up with the clinic if pain levels increase or if there are any changes in symptoms. - Consider lifestyle modifications such as weight management and dietary changes to reduce inflammation. Coding Level of Care Code Est Pt Level 4 (65888) Complex EM visit Add On G2211 Diagnoses Low back pain M54.50 Sacroiliac joint pain M53.3 Lumbosacral spondylosis M47.817 Fibromyalgia M79.7 Chronic pain syndrome G89.4
[2024-11-12 09:59] VITALS: BP 119/61; PULSE 78; O2SAT 98; BMI 34.3
== END 2024-11-12 10:22 | disposition home or self-care (01) ==
LOC: HO.PMC 09:52
PROVIDERS: PCP Pediatrics; Visit Provider Nurse Practitioner Family
DX: M54.50 Low back pain, unspecified (principal); M53.3 Sacrococcygeal disorders, not elsewhere classified; M47.817 Spondylosis without myelopathy or radiculopathy, lumbosacral region; M79.7 Fibromyalgia; G89.4 Chronic pain syndrome
CPT/HCPCS: 99214

== ENCOUNTER 2024-12-17 08:22 | Outpatient (REF) | payer BC, SELFPAY ==
--- NOTE | ~2024-12-17 | FL_ITS ---
EXAMINATION: XR FLUOROSCOPY WITH IMAGES CLINICAL INFORMATION: Lumbar spine pain management procedure. COMPARISON: None available. TECHNIQUE: Fluoroscopy provided to: Dr. Avina Fluoroscopy time: 0.1 minutes DAP: 0.0148 mGycm2 Images: 2 FINDINGS: 2 fluoroscopic spot images of the lumbar spine obtained during pain management procedure. Please refer to the full procedural report for details. FL/FL guidance in treatment room IMPRESSION: Fluoroscopic guidance. Electronically signed by: Eze Manley MD 12/17/2024 02:18 PM EDT
== END 2024-12-17 08:23 | disposition home or self-care (01) ==
LOC: CF 08:22
PROVIDERS: Visit Provider Internal Medicine
DX: M47.817 Spondylosis without myelopathy or radiculopathy, lumbosacral region (principal)
CPT/HCPCS: 64493; 64494; J2003; J2795; Q9967

== ENCOUNTER 2024-12-17 10:56 | Outpatient (AMB) | payer BC, SELFPAY ==
[2024-12-17 11:02] VITALS: BP 97/65; PULSE 80; RESP 16; O2SAT 98; BMI 34.3
--- NOTE | 2024-12-17 11:02 | A.OFFVIS_ITS ---
Vital Signs 12/17/24 11:02 12/17/24 11:32 Height 4 ft 10 in Weight 164 lb BMI 34.3 BP 97/65 97/56 L Blood Pressure Location Lt radial Lt radial Position Sitting Sitting Respiration 16 16 Pulse 80 83 Pulse Source Pulse Oximeter Pulse Oximeter Pulse Oximetry (%) 98 97 Oxygen Delivery Method Room Air Room Air Intake Visit Reasons: Bilateral Diagnostic L3-L4 DR L5 MBB/ Ativan Allergies levofloxacin (From LEVAQUIN) Allergy (Intermediate, Verified 11/12/24 09:59) redness and itchiness latex (LATEX) Allergy (Unknown, Verified 11/12/24 09:59) RASH HPI HPI Bilateral Diagnostic L3-L4 DR L5 MBB/ Ativan: Details: Patient presents for scheduled procedure. Denies any recent cough, cold, infection, fever or other significant changes in medical history since last office visit. 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 The patient was placed in a prone position. The respective lumbosacral area was prepped with chloraprep and draped in sterile fashion. The skin over the target medial branch nerves was anesthetized with 0.5% lidocaine. A 22 gauge 3.5 inch needle was inserted into the target medial branch nerve under fluoroscopic guidance. No paresthesias were elicited with needle placement and aspiration was negative for blood and CSF. Next, 0.2cc of omnipaque 180 was injected to verify positioning in AP and oblique imaging. Next 0.5 ml 0.5% ropivicaine was injected (0.5cc total per level). The identical procedure was performed at the remaining levels. The skin was cleansed and a sterile bandage was applied. Following the procedure the patient's vital signs were stable. The patient tolerated the procedure well and no complications were encountered. Following the procedure the patient's vital signs were stable. The patient was discharged home in good condition with post-procedural instructions. Time Out: Immediately prior to the procedure, the following was verbally confirmed that there is a signed consent form and that the correct patient, planned procedure, site and side are consistent with documentation and that necessary equipment and/or blood products are available prior to the start of the case. Complications: none EBL: <5 cc 64721 - with Fluoroscopy (L3-L4) (Bilateral) 82798 - second level with Fluoroscopy (L3-L4-L5) Procedure code (CPT) selection complete Assessment & Plan Assessment & Plan (1) Lumbosacral spondylosis: Code(s): M47.817 - Spondylosis without myelopathy or radiculopathy, lumbosacral region Category: Medical Plan Patient is status post bilateral L3, L4 medial branches and L5 dorsal ramus diagnostic blocks. Patient tolerated procedure well and was discharged home in stable condition with discharge instructions. All questions were answered. We will follow-up via telephone or in clinic to assess response to therapy. A follow-up appointment was made during today's visit. Orders: Orders AMB Medial Branch Block - Lumbar/Sacral Today Dwight Avina MD M47.816 - Spondylosis without myelopathy or radiculopathy, lumbar region FL guidance in treatment room Today Coleen Cantor APRN, INTELLIGENT SYSTEMS ENGINEER M47.817 - Spondylosis without myelopathy or radiculopathy, lumbosacral region Medications: Refilled lorazepam (Ativan) Take 30 minutes prior to arrival to procedure 1 mg PO ONCE 1 tab 0RF anxiety Coleen Cantor, OPERATIONS PROGRAM MANAGER, INTELLIGENT SYSTEMS ENGINEER Coding Level of Care Code Procedure Only Diagnoses Lumbosacral spondylosis M47.817 CPT Codes Medial Branch Block Lumbar/Sacral1 - Branch Block Lumb/Sac 1: 77976 - with Fluoroscopy (L3-L4) ([id number]) Medial Branch Block Lumbar/Sacral1 - Branch Block Lumb/Sac 2: 41789 - second level with Fluoroscopy (L3-L4-L5) ([id number])
[2024-12-17 11:32] VITALS: BP 97/56; PULSE 83; RESP 16; O2SAT 97
== END 2024-12-17 11:33 | disposition home or self-care (01) ==
LOC: HO.PMCPRC 10:56
PROVIDERS: PCP Pediatrics; Visit Provider Internal Medicine
DX: M47.817 Spondylosis without myelopathy or radiculopathy, lumbosacral region (principal)
CPT/HCPCS: 64493; 64494

== ENCOUNTER 2024-12-21 10:21 | Outpatient (AMB) | payer BC, SELFPAY ==
--- NOTE | 2024-12-21 10:31 | A.OFFVIS_ITS ---
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 The relief lasted approximately 8 to 10 hours post-procedure, with ongoing pain relief, reports current pain at 3/10. The patient states her lower back pain was extremely manageable throughout the day following the injections. She was able to perform daily activities such as having lunch, doing dishes, and laundry, indicating a significant improvement in her functional status. Patient is interested to proceed with lumbar medial branch Sprint PNS trial as next steps for a longer term pain relief. We also discussed lumbar medial branch RFA as a back up option. The patient also has fibromyalgia, which contributes to her overall pain experience. Past Procedures: 12/17/24: Bilateral Diagnostic L3-L4-DR L5 MBB-80-90% pain relief for 8-10 hours 10/08/24: Right therapeutic SI joint injection-90% ongoing pain relief PRIOR: The patient is a 49-year-old female presenting with chronic back and hip pain and to discuss recent spine and hip xray results. The patient reports that the pain radiates primarily to the right buttock and occasionally to both sides and into lateral hips. The patient has a history of fibromyalgia, which may exacerbate her sensitivity to pain. She has been undergoing physical therapy for six weeks, which she finds beneficial in learning new stretching techniques. The patient has a family history of osteoporosis, but she does not have the condition herself. She previously received cortisone injections in her shoulders, but they were discontinued due to diminishing effectiveness. Patient is interested to undergo therapeutic right SI joint injection to address her symptoms. Denies any recent cough, cold, infection, fever or any significant changes in medical history since last office visit. 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 She was last seen in our office in December 2023 for duloxetine refill. Her history indicates a significant and persistent fibromyalgia with concurrent chronic lower back pain, which she suggests is not limited to fibromyalgia alone. Recurring pain affects her lower back, hips, and shoulders; numbness noted in the arms persists for over a month. Diagnosed conditions include interstitial cystitis, IBS, Crohn's disease, depression and anxiety. She utilizes duloxetine for fibromyalgia along with amitriptyline, noticing relief with no adverse effects, and is open to increasing duloxetine dosage as previously discussed. 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 Overhead, imaging reveals unremarkable spinal conditions from her past CT scan and normal lumbar and knee x-rays. Patient is inclined towards more non-pharmacological interventions for her pain management journey. - Onset: Chronic wide spread body pain; aching and numbness in the arms for about a month. - Quality: Constant pain in the lower back, hips, and shoulders; numbness starting from elbow to fingers, left>right. - Location: Lower back, hips, shoulders, arms. - Radiation: Numbness from elbow to fingers. - Exacerbating factors: Bending, twisting, physical activities at work. - Relieving factors: Duloxetine provides some relief; pressure applied during certain movements eases tension. - Interference with activities: Bending, twisting exacerbates pain; affects daily work duties which are primarily physically demanding. - Affect: Pain provokes concern, feeling that diagnosis is insufficient for totality of pain. - Analgesia: Currently taking duloxetine without side effects; poised to increase the dosage. - Adverse Effects: Reports no adverse effects from current medication regimen. - Activities of Daily Living: Pain impacts work life, reducing overall physical activity outside of duty; expresses need for relief. - Aberrant Drug Related Behaviors: None reported; history of proper medication adherence. PRIOR 01/02/24: Patient presents today for follow-up for medication review. She was initially seen in our office last year in December and was prescribed duloxetine. Patient reports good tolerance with medication and significant improvement in her fibromyalgia and low back pain. She denies any significant knee pain today. Patient reports increased mobility, improved daily activities and functioning and better sleep with duloxetine. She is interested to trial twice a day dose. Denies any recent cough, cold, infection, fever, any significant changes in her medical history, medications or recent hospitalizations. PRIOR: Patient is a pleasant 47 years old female with history of fibromyalgia, chronic pain syndrome, cervicalgia, fatigue presents today for initial evaluation for lower back pain. Denies any past or recent trauma, injury or falls. Back pain is mostly axial with occasional radiation to her lateral hip and thigh but not below knee level. Reports chronic bilateral knee pain, worse with climbing stairs. Patient also presents with widespread body pain consistent with fibromyalgia. Neck pain has been minimal in the past few weeks. Denies previous spine surgery or injections. Every movement, any activity or weather changes increase her back pain. Pain affects her daily activities, functioning, sleep, social activities, mood and quality of life. Denies any fever, abdominal or groin pain, weakness, gait instability or imbalance, bladder or bowel dysfunction, or saddle anesthesia. Location Lower back, bilateral knee pain Duration Chronic pain for many years Characteristics of symptom or complaint Aching, burning, tingling, dull, numbness, tiring Aggravating or associated factors Movements, walking, sitting, climbing stairs , weather changes Relieving factors Rest, laying down, Tylenol, Marijuana (dispensary), methocarbamol Treatment PT, chiropractic therapy- 3 years ago, no improvement PFSH Medical History Diverticulitis Crohn disease Interstitial cystitis Bipolar 2 disorder Anxiety Depression Surgical History S/P ureteral stent placement History of tubal ligation Social History Household Members: Spouse and Family Housing: House Alcohol intake: never Patient Tobacco Use Status: Never used Tobacco e-Cigarette/Vaping Use: Currently Using Second Hand Smoke Exposure: No service: No 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 Alert and oriented. Mood and affect appropriate. Follows and participates in conversation appropriately. Respiratory effort is unlabored. No cough. Able to transition from sit to stand unassisted. Ambulates with bilaterally normal heel strike and toe off. General: Yes no CVA tenderness Back/Spine/Pelvis Other: Limited lumbar extension due to pain, lumbar flexion is intact and does not reproduce pain. Facet loading test positive bilaterally. Multiple tender 16/16 TTP points upper and lower extremities. Back: no CVA tenderness Cervical Spine: cervical ROM normal, cervical muscular tenderness and No Cervical spine tenderness Thoracic/Lumbar Spine: thoracic and lumbar spine normal to inspection, No Thoracic/lumbar spine scar(s), Lasegue's sign negative, straight leg raise negative bilaterally, pain with thoraco-lumbar ROM (extension), paraspinal muscle tenderness, No thoracic spinal tenderness and lumbar spinal tenderness at L4 and at L5 Sacroiliac joints: bilaterally (right>left) tender to palpation Results Reviewed Results Reviewed: XR lumbar spine 4V min 09/01/24 CLINICAL INFORMATION: Low back pain. TECHNIQUE: AP, oblique and lateral views. COMPARISON: None FINDINGS: Mild multilevel endplate sclerosis. No acute cortical disruption or malalignment. No lytic or blastic lesions. Facet joint hypertrophy at L5-S1. T-shaped contraceptive device overlapping the mid sacrum. IMPRESSION: Mild multilevel spondylosis without acute fracture or listhesis. XR BILATERAL HIPS WITH AP PELVIS 09/02/24 CLINICAL INFORMATION: M25.551 - Pain in right hip COMPARISON: None available. TECHNIQUE: AP view of the pelvis and single views of each hip were obtained. FINDINGS: Bony pelvis is intact. Mild sclerosis and the sacroiliac joints. No acute cortical disruption or malalignment in either coxofemoral joint. There is preservation of the joint spaces in the hips. There is a T-shaped contraceptive device overlapping the mid sacrum. IMPRESSION: No acute fracture or dislocation. Assessment & Plan Assessment & Plan (1) Low back pain: Code(s): M54.50 - Low back pain, unspecified Category: Medical (2) Sacroiliac joint pain: Code(s): M53.3 - Sacrococcygeal disorders, not elsewhere classified Category: Medical (3) Lumbosacral spondylosis: Code(s): M47.817 - Spondylosis without myelopathy or radiculopathy, lumbosacral region Category: Medical (4) Fibromyalgia: Code(s): M79.7 - Fibromyalgia Category: Medical (5) Chronic pain syndrome: Code(s): G89.4 - Chronic pain syndrome Category: Medical Plan The plan involves proceeding with the Sprint peripheral nerve stimulation to manage lumbar facet mediated pain given significant pain relief with diagnostic lumbar medial branch blocks. We also discussed lumbar medial branch RFA. Schedule bilateral L3 medial branch Sprint PNS trial with local, oral sedation and fluoroscopy, starting with right side, followed by left side. Expectations, risks and benefits were reviewed. Patient is aware she will be contacted to schedule this procedure. All questions and concerns have been answered and patient agreed with the treatment plan. Follow up after Sprint PNS placement and sooner as needed. Patient was informed and verbally consented to the use of an ambient scribe for clinic note documentation during this visit. Coding Level of Care Code Est Pt Level 3 (22163) Complex EM visit Add On G2211 Diagnoses Low back pain M54.50 Sacroiliac joint pain M53.3 Lumbosacral spondylosis M47.817 Fibromyalgia M79.7 Chronic pain syndrome G89.4
[2024-12-21 10:34] VITALS: BP 135/59; PULSE 94; O2SAT 98; BMI 34.3
== END 2024-12-21 10:55 | disposition home or self-care (01) ==
LOC: HO.PMC 10:22
PROVIDERS: PCP Pediatrics; Visit Provider Nurse Practitioner Family
DX: M54.50 Low back pain, unspecified (principal); M53.3 Sacrococcygeal disorders, not elsewhere classified; M47.817 Spondylosis without myelopathy or radiculopathy, lumbosacral region; M79.7 Fibromyalgia; G89.4 Chronic pain syndrome
CPT/HCPCS: 99213